=== PATIENT | male | born 1935 | race Caucasian/White ===

== ENCOUNTER 2019-03-31 03:56 | Inpatient (IN) | payer MEDICARE ==
[2019-03-31] VITALS (19 sets, daily range): BP systolic 93–131; BP diastolic 51–80
[~2019-03-31] VITALS: Ht 177.8 cm; Wt 59.8 kg
--- NOTE | 2019-03-31 04:15 | PHYS DOC ---
Adult General Chief Complaint Chief Complaint: urinary retention HPI HPI 84-year-old male presents for urinary retention. The patient has a Hanson catheter which was placed because he has prostate cancer. Since about 9 PM last night, the patient has not had any output. He is becoming uncomfortable. He has had this happen before. This feels the same. He was due to have the catheter changed a few weeks ago, but it did not changed yet. He was seen by home health nurse yesterday, but she decided not to change it that day. He denies fever or chills. He has no other complaints at this time. (YG HERNANDEZ DO) Review of Systems Review of Systems Constitutional: Denies fever or chills [] Eyes: Denies change in visual acuity, redness, or eye pain [] HENT: Denies nasal congestion or sore throat [] Respiratory: Denies cough or shortness of breath [] Cardiovascular: No additional information not addressed in HPI [] GI: Mild lower abdominal pain. denies nausea, vomiting, bloody stools or diarrhea [] : Obstructed Hanson catheter[] Musculoskeletal: Denies back pain or joint pain [] Integument: Denies rash or skin lesions [] Neurologic: Denies headache, focal weakness or sensory changes [] Endocrine: Denies polyuria or polydipsia [] All other systems were reviewed and found to be within normal limits, except as documented in this note. (YG HERNANDEZ DO) Physical Exam Physical Exam Constitutional: Well developed, well nourished, no acute distress, non-toxic appearance. [] HENT: Normocephalic, atraumatic, bilateral external ears normal, oropharynx moist, no oral exudates, nose normal. [] Eyes: PERRLA, EOMI, conjunctiva normal, no discharge. [] Neck: Normal range of motion, no tenderness, supple, no stridor. [] Cardiovascular:Heart rate regular rhythm, no murmur [] Lungs & Thorax: Bilateral breath sounds clear to auscultation [] Abdomen: Bowel sounds normal, soft, no tenderness, no masses, no pulsatile masses. [] Skin: Warm, dry, no erythema, no rash. [] Back: No tenderness, no CVA tenderness. [] Extremities: No tenderness, no cyanosis, no clubbing, ROM intact, no edema. [] Neurologic: Alert and oriented X 3, normal motor function, normal sensory function, no focal deficits noted. [] Psychologic: Affect normal, judgement normal, mood normal. : normal external genitalia, hanson catheter in place. [] (YG HERNANDEZ DO) EKG EKG [] (YG HERNANDEZ DO) Radiology/Procedures Radiology/Procedures [] (YG HERNANDEZ DO) Course & Med Decision Making Course & Med Decision Making Pertinent Labs and Imaging studies reviewed. (See chart for details) While the patient was in the emergency room, his heart was found to be 144. It does appear to be sinus. We have requested records from the [place] include a medical problem list and medication list. His Hanson catheter was changed and the new one was working well. The patient's workup is pending. I'm signing him out to Dr. Chaidez at 0600. The patient does appear to have UTI. I have ordered 1 g of Rocephin IV. [] (YG HERNANDEZ DO) Course & Med Decision Making Critical care time was 35 minutes exclusive of procedures. For management of tachyarrhythmia requiring IV agents. In summary this is an 84-year-old male with a history of prostate cancer came in initially for Hanson change found that that be in atrial flutter did a adenosine diagnostic proving the flutter waves gave dose of Cardizem heart rate improved its slowly trending back up at this time into the 120s will start low-dose Cardizem drip most likely. Patient did have some hematuria that apparently was clearing with manual irrigation in the emergency room. Received antibiotics for possible UTI BNP was elevated that may be some mild pulmonary edema he satting low 90s on 2 L at this time admit to chanelle D/W HIM AT 730 (JOSE LUIS CHAIDEZ MD) Dragon Disclaimer Dragon Disclaimer This electronic medical record was generated, in whole or in part, using a voice recognition dictation system. (YG HERNANDEZ DO) Departure Departure: Impression: Primary Impression: Urinary catheter complication Additional Impression: Atrial flutter Disposition: 09 ADMITTED INPATIENT Admitting Physician: Jay Huntley (JOSE LUIS CHAIDEZ MD) Condition: STABLE Referrals: PCP,NO (PCP) Patient Instructions: Hanson Catheter Care, Adult Problem Qualifiers Primary Impression: Urinary catheter complication Encounter type: initial encounter Qualified Codes: T83.9XXA - Unspecified complication of genitourinary prosthetic device, implant and graft, initial encounter YG HERNANDEZ DO Mar 31, 2019 04:15 JOSE LUIS CHAIDEZ MD Mar 31, 2019 07:00
[2019-03-31] MEDS ORDERED: IV NORMAL SALINE 1,000ML 1,000 ML IV ONE (05:00)
[2019-03-31 05:43] LABS: BILIRUBIN,URINE NEG (NEG); CLARITY,URINE TURBID; COLOR,URINE BROWN; GLUCOSE,URINE NEG (NEG)
[2019-03-31 05:44] LABS: BACTERIA,URINE MANY /HPF (0-FEW); NITRITE,URINE POS (NEG); RBC,URINE TNTC /HPF (0-2); UROBILINOGEN,URINE 0.2 mg/dL (0.2 mg/dL); WBC,URINE >40 /HPF (0-4)
[2019-03-31 05:54] LABS: BASO % 1 % (0-3); EOS # 0.3 x10^3/uL (0.0-0.7); EOS % 3 % (0-3); HEMATOCRIT 38.7 % (39.0-53.0); HEMOGLOBIN 13.1 g/dL (13.0-17.5); LYMPH # 1.2 x10^3/uL (1.0-4.8); LYMPH % 15 % (24-48); MEAN CORPUSCULAR HEMOGLOBIN 31 pg (25-35); MEAN CORPUSCULAR HGB CONC 34 g/dL (31-37); MEAN CORPUSCULAR VOLUME 91 fL (79-100); MONO # 0.7 x10^3/uL (0.0-1.1); MONO % 9 % (0-9); NEUT # 5.9 x10^3uL (1.8-7.7); NEUT % 73 % (31-73); PLATELET COUNT 210 x10^3/uL (140-400); RED BLOOD COUNT 4.26 x10^6/uL (4.30-5.70); RED CELL DISTRIBUTION WIDTH 13.9 % (11.5-14.5); WHITE BLOOD COUNT 8.2 x10^3/uL (4.0-11.0)
--- NOTE | 2019-03-31 05:54 | EKG ---
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
[2019-03-31 06:04] LABS: CALCIUM 9.3 mg/dL (8.5-10.1); CREATININE 1.2 mg/dL (0.7-1.3); GFR 57.7
[2019-03-31] MEDS ORDERED: lidocaine 5% patch (06:06)
[2019-03-31] MEDS ORDERED: cholecalciferol (06:06)
[2019-03-31] MEDS ORDERED: ENSURE PLUS (06:06)
[2019-03-31] MEDS ORDERED: TAMS0.4C97 PO (06:06)
[2019-03-31] MEDS ORDERED: SERT100T PO (06:06)
[2019-03-31] MEDS ORDERED: MIRT15TA3 PO (06:06)
[2019-03-31] MEDS ORDERED: ADENOSINE 6 MG/2 ML VIAL IV ONE ×4 (06:08→06:30)
[2019-03-31] MEDS ORDERED: cefTRIAXone SODIUM 1 GM VIAL ONE (06:09)
[2019-03-31 06:12] LABS: ALBUMIN 3.8 g/dL (3.4-5.0); ALBUMIN/GLOBULIN RATIO 1.5 (1.0-1.7); TOTAL PROTEIN 6.4 g/dL (6.4-8.2)
[2019-03-31] MEDS ORDERED: dilTIAZem 25 MG/5 ML VIAL IVP ONE ×2 (06:17→06:30)
[2019-03-31] MEDS ORDERED: DOXYCYCLINE HYCLATE 100 MG TABLET PO ONE (06:30)
[2019-03-31] MEDS ORDERED: dilTIAZem VIAL 125 MG in IV NORMAL SALINE 100ML 100 ML IV ONE (06:30)
--- NOTE | 2019-03-31 06:43 | EKG ---
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
[2019-03-31] MEDS ORDERED: IV NORMAL SALINE 100ML 100 ML ONE (06:54)
[2019-03-31] MEDS ORDERED: ASPIRIN 81 MG TAB.CHEW PO ONE (07:30)
--- NOTE | 2019-03-31 07:57 | RAD ---
CHEST AP ONLY INDICATION: Tachycardia. COMPARISON STUDY: None. FINDINGS: Lungs: Normal lung volume. Bilateral perihilar and basilar heterogeneous opacities. Indistinct pulmonary vasculature. Pleura: No pleural effusion or pneumothorax. Heart and Mediastinum: Cardiomegaly. Tortuous thoracic aorta. CABG. IMPRESSION: Bilateral perihilar and basilar opacities, likely pulmonary edema. Electronically signed by: Augustine Blanchard MD (03/31/2019 7:54 AM) [facility]
[2019-03-31] MEDS ORDERED: ONDANSETRON PF 4 MG/2 ML VIAL. ONE (08:13)
[2019-03-31] MEDS ORDERED: DIGOXIN IV 500 MCG/2 ML AMPUL. IV ONE ×3 (08:30→10:00)
[2019-03-31] MEDS ORDERED: FUROSEMIDE 20 MG/2 ML VIAL IVP ONE (09:00)
[2019-03-31] MEDS: ALBUTEROL SULFATE 2.5 MG/3 ML NEBU. NEB PRN ×2 (10:53→18:31)
--- NOTE | 2019-03-31 14:30 | PDOC2 ---
CARDIAC CONSULT DATE OF CONSULT Date Of Consult DATE: 03/31/19 TIME: 14:30 CURRENT MEDICATIONS Current Medications Current Medications Sodium Chloride 1,000 ml @ 1,000 mls/hr 1X ONCE IV Last administered on 03/31/19at 05:30; Start 03/31/19 at 05:00; Stop 03/31/19 at 06:00; Status DC Ceftriaxone Sodium 1 gm/ Sodium Chloride 50 ml @ 100 mls/hr 1X ONCE IV Last administered on 03/31/19at 06:30; Start 03/31/19 at 06:30; Stop 03/31/19 at 06:59; Status DC Adenosine (Adenocard) 6 mg STK-MED ONCE IV ; Start 03/31/19 at 06:08; Stop 03/31 at 06:08; Status DC Ceftriaxone Sodium (Rocephin) 1 gm STK-MED ONCE .ROUTE ; Start 03/31/19 at 06:09; Stop 03/31/19 at 06:09; Status DC Adenosine (Adenocard) 6 mg STK-MED ONCE IV ; Start 03/31/19 at 06:14; Stop 03/31/19 at 06:15; Status DC Diltiazem HCl (Cardizem Iv Push) 25 mg STK-MED ONCE IVP ; Start 03/31/19 at 06:17; Stop 03/31/19 at 06:18; Status DC Doxycycline Hyclate (Vibra-Tab) 100 mg 1X ONCE PO Last administered on 03/31/19at 07:15; Start 03/31/19 at 06:30; Stop 03/31/19 at 06:31; Status DC Diltiazem HCl (Cardizem Iv Push) 20 mg 1X ONCE IVP Last administered on 03/31/19at 06:40; Start 03/31/19 at 06:30; Stop 03/31/19 at 06:31; Status DC Diltiazem HCl 125 mg/Sodium Chloride 125 ml @ 5 mls/hr 1X ONCE IV Last administered on 03/31/19at 07:10; Start 03/31/19 at 06:30; Stop 04/01/19 at 07:29 Adenosine (Adenocard) 6 mg 1X ONCE IV Last administered on 03/31/19at 06:30; Start 03/31/19 at 06:30; Stop 03/31/19 at 06:31; Status DC Adenosine (Adenocard) 12 mg 1X ONCE IV Last administered on 03/31/19at 06:32; Start 03/31/19 at 06:30; Stop 03/31/19 at 06:31; Status DC Sodium Chloride 100 ml @ As Directed STK-MED ONCE .ROUTE ; Start 03/31/19 at 06:54; Stop 03/31/19 at 06:54; Status DC Diltiazem HCl (Cardizem) 125 mg STK-MED ONCE IV ; Start 03/31/19 at 06:54; Stop 03/31/19 at 06:54; Status DC Aspirin (Children'S Aspirin) 324 mg 1X ONCE PO Last administered on 03/31/19at 07:30; Start 03/31/19 at 07:30; Stop 03/31/19 at 07:31; Status DC Ondansetron HCl (Zofran) 4 mg STK-MED ONCE .ROUTE ; Start 03/31/19 at 08:13; Stop 03/31/19 at 08:13; Status DC Digoxin (Lanoxin) 500 mcg 1X ONCE IV ; Start 03/31/19 at 08:30; Stop 03/31/19 at 08:31; Status DC Furosemide (Lasix) 20 mg 1X ONCE IVP Last administered on 03/31/19at 09:09; Start 03/31/19 at 09:00; Stop 03/31/19 at 09:02; Status DC Digoxin (Lanoxin) 250 mcg 1X ONCE IV Last administered on 03/31/19at 09:07; Start 03/31/19 at 09:00; Stop 03/31/19 at 09:02; Status DC Digoxin (Lanoxin) 250 mcg 1X ONCE IV ; Start 03/31/19 at 10:00; Stop 03/31/19 at 10:01; Status DC Albuterol Sulfate (Ventolin) 2.5 mg PRN QID PRN NEB SHORTNESS OF BREATH Last administered on 03/31/19at 10:53; Start 03/31/19 at 09:00 Active Scripts Active Reported [cholecalciferol] Flomax (Tamsulosin Hcl) 0.4 Mg Cap.er.24h 0.4 Mg PO DAILY Zoloft (Sertraline Hcl) 100 Mg Tablet 100 Mg PO DAILY [ensure plus] Mirtazapine 15 Mg Tablet 15 Mg PO QHS [lidocaine 5% patch] ALLERGIES Allergies: Coded Allergies: No Known Drug Allergies (Unverified , 03/31/19) VITALS Vital Signs Vital Signs Date Time Temp Pulse Resp B/P (MAP) Pulse Ox O2 Delivery O2 Flow Rate FiO2 03/31/19 14:00 97.9 95 16 108/58 (75) 93 Room Air 03/31/19 12:30 4.0 LABS LABS Laboratory Tests Test 03/31/19 04:30 03/31/19 05:20 03/31/19 06:25 Urine Collection Type U cath Urine Color Brown Urine Clarity Turbid Urine pH 5.5 Urine Specific [place] >=1.030 Urine Protein >100 mg/dl (NEG-TRACE) Urine Glucose (UA) Neg mg/dL (NEG) Urine Ketones (Stick) Neg mg/dL (NEG) Urine Blood Large (NEG) Urine Nitrite Pos (NEG) Urine Bilirubin Neg (NEG) Urine Urobilinogen Dipstick 0.2 mg/dL (0.2 mg/dL) Urine Leukocyte Esterase Trace (NEG) Urine RBC Tntc /HPF (0-2) Urine WBC >40 /HPF (0-4) Urine Squamous Epithelial Cells None /LPF Urine Renal Epithelial Cells Occ /LPF Urine Bacteria Many /HPF (0-FEW) White Blood Count 8.2 x10^3/uL (4.0-11.0) Red Blood Count 4.26 x10^6/uL (4.30-5.70) Hemoglobin 13.1 g/dL (13.0-17.5) Hematocrit 38.7 % (39.0-53.0) Mean Corpuscular Volume 91 fL (79-100) Mean Corpuscular Hemoglobin 31 pg (25-35) Mean Corpuscular Hemoglobin Concent 34 g/dL (31-37) Red Cell Distribution Width 13.9 % (11.5-14.5) Platelet Count 210 x10^3/uL (140-400) Neutrophils (%) (Auto) 73 % (31-73) Lymphocytes (%) (Auto) 15 % (24-48) Monocytes (%) (Auto) 9 % (0-9) Eosinophils (%) (Auto) 3 % (0-3) Basophils (%) (Auto) 1 % (0-3) Neutrophils # (Auto) 5.9 x10^3uL (1.8-7.7) Lymphocytes # (Auto) 1.2 x10^3/uL (1.0-4.8) Monocytes # (Auto) 0.7 x10^3/uL (0.0-1.1) Eosinophils # (Auto) 0.3 x10^3/uL (0.0-0.7) Basophils # (Auto) 0.0 x10^3/uL (0.0-0.2) Prothrombin Time 10.9 SEC (9.4-11.4) Prothromb Time International Ratio 1.1 (0.9-1.1) Sodium Level 144 mmol/L (136-145) Potassium Level 4.0 mmol/L (3.5-5.1) Chloride Level 107 mmol/L (98-107) Carbon Dioxide Level 26 mmol/L (21-32) Anion Gap 11 (6-14) Blood Urea Nitrogen 24 mg/dL (8-26) Creatinine 1.2 mg/dL (0.7-1.3) Estimated GFR (Cockcroft-Gault) 57.7 BUN/Creatinine Ratio 20 (6-20) Glucose Level 93 mg/dL (70-99) Calcium Level 9.3 mg/dL (8.5-10.1) Total Bilirubin 1.0 mg/dL (0.2-1.0) Aspartate Amino Transf (AST/SGOT) 37 U/L (15-37) Alanine Aminotransferase (ALT/SGPT) 63 U/L (16-63) Alkaline Phosphatase 84 U/L (46-116) Troponin I Quantitative < 0.017 ng/mL (0-0.055) UD-Rzb-V-Type Natriuretic Peptide 2880 pg/mL (0-449) Total Protein 6.4 g/dL (6.4-8.2) Albumin 3.8 g/dL (3.4-5.0) Albumin/Globulin Ratio 1.5 (1.0-1.7) Lactic Acid Level 1.4 mmol/L (0.4-2.0) BRANDON HASSAN MD Mar 31, 2019 14:30
[2019-03-31] MEDS ORDERED: dilTIAZem VIAL 125 MG in IV NORMAL SALINE 100ML 100 ML IV PRN (17:00)
--- NOTE | 2019-03-31 17:57 | HP ---
ADMIT DATE: 03/31/2019 HISTORY OF PRESENT ILLNESS: The patient is an 84-year-old male patient who came to the Emergency Room complaining of urinary retention. The patient has a Bey catheter, which was placed because he has prostate cancer since about 9:00 p.m. last night. The patient has not had any output. He is becoming uncomfortable. He has had this having before he feels the same. He was due to have the catheter changed a few weeks ago, but it was not changed yet. He was seen by home health nurse yesterday, but she decided not to change it that day. He denied any chills, rigors or fever. He has no other complaint at the time of arrival and on arrival to the Emergency Room, he apparently was found to be in atrial fibrillation with rapid ventricular response. His Bey catheter was changed and new one was working well. The patient's workup showed that he was in atrial flutter and his lab work showed that his CBC and chemistry was fine. His prothrombin time and INR was fine. However, his urinalysis showed the urine was turbid with more than 100 mg/dL of protein, large amount of blood, positive for nitrite, more than 40 wbc's, and many bacteria and the patient was admitted with urinary retention, urinary tract infection and atrial flutter/atrial fibrillation. His chest x-ray showed that he is in pulmonary edema. He received treatment in the Emergency Room in the form of Cardizem drip and was given adenosine 6 and 12 mg without improvement and therefore with a loading dose of diltiazem and was started on diltiazem drip and was admitted for further evaluation, did receive about 500 mcg of digoxin IV and furosemide 20 mg once and was admitted to the ICU to continue on Cardizem drip. PAST MEDICAL HISTORY: Significant for hyperlipidemia, benign prostatic hypertrophy, coronary artery disease status post coronary artery bypass graft surgery. He has prostate cancer, mild cognitive impairment, erectile dysfunction, colonic polyps. PAST SURGICAL HISTORY: Significant for coronary artery bypass graft surgery. He has also abdominal aortic aneurysm repair. According to him, he has not received any treatment for his prostate cancer. ALLERGIES: He has no known drug allergies. MEDICATIONS: He is currently on following medications: He is on Flomax 0.4 mg daily, mirtazapine 15 mg at bedtime, sertraline 100 mg once a day. He is also on Lidoderm patch 1 patch topically on and off for 12 hours. He is on Ensure Plus 1 can by mouth every evening. He is on sertraline 100 mg once a day, tamsulosin 0.4 mg once a day, cholecalciferol/vitamin D3 1000 units daily. He is on multivitamin 1 tablet once a day. FAMILY HISTORY: Noncontributory. SOCIAL HISTORY: He is , lives alone. He has 2 sons and 1 daughter. He quit smoking about 18 years ago. He does not drink alcohol or use recreational drugs. He is fairly independent. Recently, the [place] has assigned home health nurse to take care of him. PHYSICAL EXAMINATION: GENERAL: On arrival to the Emergency Room, the patient looked well and was clearly in no apparent respiratory distress, slightly cachectic. There is no jaundice, cyanosis or thyromegaly. No jugular venous distention. No limb edema. VITAL SIGNS: His heart rate on arrival was 144, blood pressure was 136/90, temperature was 98, respiratory rate 24 and oxygen saturation was 91% on room air. HEAD, EYES, EARS, NOSE AND THROAT: Showed normocephalic, atraumatic. NECK: Supple. HEART: Showed normal first and second heart sounds. No gallop or murmur. CHEST: Showed central trachea, equal bilateral chest expansion and air entry, vesicular breath sounds with bilateral basal crepitation. I could not appreciate any rhonchi. ABDOMEN: Scaphoid, soft, nontender. NEUROLOGIC: He is awake, alert, responding appropriately. All cranial nerves intact. EXTREMITIES: He moves extremities without difficulty. He has an indwelling Bey catheter. LABORATORY DATA: His lab work on arrival showed a white cell count of 8200, hemoglobin 13, hematocrit 39, MCV 91, and platelet count 210,000 with normal manual differential. Serum sodium was 144, potassium 4, chloride 107, bicarbonate 26, anion gap of 11, BUN 24, creatinine 1.2, estimated GFR was 57 mL per minute. His glucose was 93. Lactic acid was 1.4, calcium was 9.3. Total bilirubin, AST, ALT, alkaline phosphatase were normal. Total protein 6.4, albumin was 3.8. Beta natriuretic peptide was 2180. His prothrombin time was 19.9, INR 1.1. Urinalysis showed the urine was brown, turbid with a pH of 5.5, specific gravity of 1.030. There was a large amount of protein, negative for glucose, negative for ketones, large amount of blood, positive for nitrite. There was trace of leukocyte esterase, too numerous to count rbc's, more than 40 wbc's, and many bacteria. His chest x-ray showed that there are normal lung volumes, bilateral perihilar and basilar heterogenous opacities, indistinct pulmonary vasculature. There is no pleural effusion or pneumothorax. Heart showed cardiomegaly and tortuous thoracic aorta, evidence of CABG and the impression that the patient has bilateral perihilar and basilar opacities, likely pulmonary edema. ASSESSMENT AND PLAN: The patient was treated initially with adenosine 6 and then 12 mg, given a bolus of diltiazem and then continued on Cardizem drip, received also digoxin 500 mcg once IV and received a total of 1000 mcg of digoxin and was continued on his diltiazem drip as well as his other medications. We have consulted the Cardiology team. We will continue with Cardizem drip for now. I am not sure he is a candidate for anticoagulation. We would leave that decision to Cardiology. ALLISON STODDARD MD DR: SUKHDEV/delores JOB#: [id number] / [id number]
[2019-03-31] MEDS: MIRTAZAPINE 15 MG TABLET PO SCH (20:31)
--- NOTE | 2019-03-31 20:56 | PDOC ---
Exam Note: Kin Note: Please also refer to the separate dictated note~for this date of service dictated separately.~Patient seen individually. Discussed the patient with Nursing staff reviewed the chart.~Reviewed interim history and current functioning. Reviewed vital signs,~Labs/ Radiology~and current medications noted below. Continue current treatment with the changes noted in the dictated addendum note Assessment: Vital Signs/I&O: Vital Signs Date Time Temp Pulse Resp B/P (MAP) Pulse Ox O2 Delivery O2 Flow Rate FiO2 03/31/19 20:30 98 20 98/60 (73) 94 Nasal Cannula 4.5 03/31/19 19:30 97.5 I & O 03/30/19 03/30/19 03/31/19 15:00 23:00 07:00 Intake Total 1000 ml Balance 1000 ml Labs: Laboratory Tests Test 03/31/19 04:30 03/31/19 05:20 03/31/19 06:25 Urine Collection Type U cath Urine Color Brown Urine Clarity Turbid Urine pH 5.5 Urine Specific [place] >=1.030 Urine Protein >100 mg/dl (NEG-TRACE) Urine Glucose (UA) Neg mg/dL (NEG) Urine Ketones (Stick) Neg mg/dL (NEG) Urine Blood Large (NEG) Urine Nitrite Pos (NEG) Urine Bilirubin Neg (NEG) Urine Urobilinogen Dipstick 0.2 mg/dL (0.2 mg/dL) Urine Leukocyte Esterase Trace (NEG) Urine RBC Tntc /HPF (0-2) Urine WBC >40 /HPF (0-4) Urine Squamous Epithelial Cells None /LPF Urine Renal Epithelial Cells Occ /LPF Urine Bacteria Many /HPF (0-FEW) White Blood Count 8.2 x10^3/uL (4.0-11.0) Red Blood Count 4.26 x10^6/uL (4.30-5.70) L Hemoglobin 13.1 g/dL (13.0-17.5) Hematocrit 38.7 % (39.0-53.0) L Mean Corpuscular Volume 91 fL (79-100) Mean Corpuscular Hemoglobin 31 pg (25-35) Mean Corpuscular Hemoglobin Concent 34 g/dL (31-37) Red Cell Distribution Width 13.9 % (11.5-14.5) Platelet Count 210 x10^3/uL (140-400) Neutrophils (%) (Auto) 73 % (31-73) Lymphocytes (%) (Auto) 15 % (24-48) L Monocytes (%) (Auto) 9 % (0-9) Eosinophils (%) (Auto) 3 % (0-3) Basophils (%) (Auto) 1 % (0-3) Neutrophils # (Auto) 5.9 x10^3uL (1.8-7.7) Lymphocytes # (Auto) 1.2 x10^3/uL (1.0-4.8) Monocytes # (Auto) 0.7 x10^3/uL (0.0-1.1) Eosinophils # (Auto) 0.3 x10^3/uL (0.0-0.7) Basophils # (Auto) 0.0 x10^3/uL (0.0-0.2) Prothrombin Time 10.9 SEC (9.4-11.4) Prothrombin Time INR 1.1 (0.9-1.1) Sodium Level 144 mmol/L (136-145) Potassium Level 4.0 mmol/L (3.5-5.1) Chloride Level 107 mmol/L (98-107) Carbon Dioxide Level 26 mmol/L (21-32) Anion Gap 11 (6-14) Blood Urea Nitrogen 24 mg/dL (8-26) Creatinine 1.2 mg/dL (0.7-1.3) Estimated GFR (Cockcroft-Gault) 57.7 BUN/Creatinine Ratio 20 (6-20) Glucose Level 93 mg/dL (70-99) Calcium Level 9.3 mg/dL (8.5-10.1) Total Bilirubin 1.0 mg/dL (0.2-1.0) Aspartate Amino Transferase (AST) 37 U/L (15-37) Alanine Aminotransferase (ALT) 63 U/L (16-63) Alkaline Phosphatase 84 U/L (46-116) Troponin I Quantitative < 0.017 ng/mL (0-0.055) MI-Acn-C-Type Natriuretic Peptide 2880 pg/mL (0-449) H Total Protein 6.4 g/dL (6.4-8.2) Albumin 3.8 g/dL (3.4-5.0) Albumin/Globulin Ratio 1.5 (1.0-1.7) Lactic Acid Level 1.4 mmol/L (0.4-2.0) Current Medications: Meds: Current Medications Medications (Trade) Dose Ordered Sig/Andrew Route PRN Reason Start Time Stop Time Status Last Admin Dose Admin Sodium Chloride 1,000 ml @ 1,000 mls/hr 1X ONCE IV 03/31/19 05:00 03/31/19 06:00 DC 03/31/19 05:30 Ceftriaxone Sodium 1 gm/ Sodium Chloride 50 ml @ 100 mls/hr 1X ONCE IV 03/31/19 06:30 03/31/19 06:59 DC 03/31/19 06:30 Doxycycline Hyclate (Vibra-Tab) 100 mg 1X ONCE PO 03/31/19 06:30 03/31/19 06:31 DC 03/31/19 07:15 Diltiazem HCl (Cardizem Iv Push) 20 mg 1X ONCE IVP 03/31/19 06:30 03/31/19 06:31 DC 03/31/19 06:40 Diltiazem HCl 125 mg/Sodium Chloride 125 ml @ 5 mls/hr 1X ONCE IV 03/31/19 06:30 03/31/19 17:12 DC 03/31/19 07:10 Adenosine (Adenocard) 6 mg 1X ONCE IV 03/31/19 06:30 03/31/19 06:31 DC 03/31/19 06:30 Adenosine (Adenocard) 12 mg 1X ONCE IV 03/31/19 06:30 03/31/19 06:31 DC 03/31/19 06:32 Aspirin (Children'S Aspirin) 324 mg 1X ONCE PO 03/31/19 07:30 03/31/19 07:31 DC 03/31/19 07:30 Furosemide (Lasix) 20 mg 1X ONCE IVP 03/31/19 09:00 03/31/19 09:02 DC 03/31/19 09:09 Digoxin (Lanoxin) 250 mcg 1X ONCE IV 03/31/19 09:00 03/31/19 09:02 DC 03/31/19 09:07 Albuterol Sulfate (Ventolin) 2.5 mg PRN QID PRN NEB SHORTNESS OF BREATH 03/31/19 09:00 03/31/19 18:31 Mirtazapine (Remeron) 15 mg QHS PO 03/31/19 21:00 1/18/20 20:31 Diltiazem HCl 125 mg/Sodium Chloride 125 ml @ 5 mls/hr CONT PRN IV TACHYCARDIA 03/31/19 17:00 03/31/19 18:14 I have reviewed the current psychotropics carefully including drug interactions. Risk benefit ratio favors no change other than as noted in my dictated progress note. Diagnosis: Problems: (1) Atrial flutter (2) Urinary catheter complication CATHERINE HURST MD Mar 31, 2019 20:56
[2019-04-01] VITALS (22 sets, daily range): BP systolic 58–121; BP diastolic 50–82
[2019-04-01 06:47] LABS: ALBUMIN 2.8 g/dL (3.4-5.0); CALCIUM 7.8 mg/dL (8.5-10.1); CREATININE 1.1 mg/dL (0.7-1.3); GFR 63.8; POTASSIUM 3.6 mmol/L (3.5-5.1); TOTAL BILIRUBIN 0.9 mg/dL (0.2-1.0); TOTAL PROTEIN 5.6 g/dL (6.4-8.2)
[2019-04-01 07:09] LABS: HEMATOCRIT 34.1 % (39.0-53.0); HEMOGLOBIN 11.9 g/dL (13.0-17.5); RED BLOOD COUNT 3.81 x10^6/uL (4.30-5.70); RED CELL DISTRIBUTION WIDTH 13.8 % (11.5-14.5); WHITE BLOOD COUNT 8.1 x10^3/uL (4.0-11.0)
--- NOTE | 2019-04-01 07:52 | RAD ---
CT scan of the head without contrast 04/01/2019 Clinical History: Cognitive decline. Technique: Unenhanced, contiguous, 5 mm axial sections were obtained through the head. One or more of the following individualized dose reduction techniques were utilized for this study: 1. Automated exposure control. 2. Adjustment of the mA and/or kV according to patient size. 3. Use of iterative reconstruction technique. Findings: No previous studies are available for comparison. There is generalized parenchymal atrophy. Areas of decreased attenuation are seen within the periventricular and subcortical white matter of both cerebral hemispheres consistent with areas of small vessel ischemic disease. No acute parenchymal abnormality is seen. No extra-axial fluid collection is noted. No skull fracture is seen. Impression: No acute intracranial abnormality is seen. Electronically signed by: Barrera Ashton MD (04/01/2019 7:48 AM) [id number]
[2019-04-01 08:40] LABS: BGAS PH 7.46 (7.35-7.46)
[2019-04-01] MEDS: TAMSULOSIN 0.4 MG CAP.ER.24H. PO SCH (09:31)
[2019-04-01] MEDS: LACTOBACILLUS RHAMNOSUS GG 1 CAPSULE. PO SCH ×2 (09:31→20:35)
[2019-04-01] MEDS: SERTRALINE 100 MG TABLET. PO SCH (09:31)
[2019-04-01] MEDS: METOPROLOL TART IMMED RELEASE 25 MG TABLET PO SCH ×2 (11:15→20:35)
[2019-04-01] MEDS: APIXABAN 5 MG TABLET. PO SCH ×2 (12:59→20:35)
--- NOTE | 2019-04-01 14:04 | PDOC2 ---
CARDIAC CONSULT DATE OF CONSULT Date Of Consult DATE: 03/31/19 REASON FOR CONSULT Reason for Consult Atrial fib/flutter REFERRING PHYSICIAN Referring Physician Dr. Huntley SOURCE Source: Chart review, Patient HPI History of Present Illness The patient is an 84-year-old male who was brought to the emergency room for difficulty voiding. He has a history of prostate cancer and a catheter was placed in the emergency room. Also while in the emergency room the patient was found to have a tachycardia which is found to be atrial fib flutter. He was admitted and treated with IV Cardizem for rate control. EKG showed no ischemic changes. Chest x-ray showed mild by bilateral pulmonary edema. Troponin has been normal at less than 0.017, BNP elevated at 2880. TSH is 0.777 and potassium is 3.6. The patient is now resting comfortably in bed. He presently is in a sinus rhythm a rate of 95 but continues to have episodes of atrial flutter flutter as well. He denies any chest pain. He does have a history of coronary artery disease as well as bypass surgery and abdominal aortic aneurysm repair. PAST MEDICAL HISTORY Cardiovascular: CAD, HTN, hyperipidemia, Other (nominal aortic aneurysm) Pulmonary: COPD Heme/Onc: Other (prostate cancer) PAST SURGICAL HISTORY Past Surgical History: CABG FAMILY HISTORY Family History: Hypertension SOCIAL HISTORY Smoke: Quit ALCOHOL: none CURRENT MEDICATIONS Current Medications Current Medications Sodium Chloride 1,000 ml @ 1,000 mls/hr 1X ONCE IV Last administered on 03/31/19at 05:30; Start 03/31/19 at 05:00; Stop 03/31/19 at 06:00; Status DC Ceftriaxone Sodium 1 gm/ Sodium Chloride 50 ml @ 100 mls/hr 1X ONCE IV Last administered on 03/31/19at 06:30; Start 03/31/19 at 06:30; Stop 03/31/19 at 06 :59; Status DC Adenosine (Adenocard) 6 mg STK-MED ONCE IV ; Start 03/31/19 at 06:08; Stop 03/31/19 at 06:08; Status DC Ceftriaxone Sodium (Rocephin) 1 gm STK-MED ONCE .ROUTE ; Start 03/31/19 at 06:09; Stop 03/31/19 at 06:09; Status DC Adenosine (Adenocard) 6 mg STK-MED ONCE IV ; Start 03/31/19 at 06:14; Stop 03/31/19 at 06:15; Status DC Diltiazem HCl (Cardizem Iv Push) 25 mg STK-MED ONCE IVP ; Start 03/31/19 at 06:17; Stop 03/31/19 at 06:18; Status DC Doxycycline Hyclate (Vibra-Tab) 100 mg 1X ONCE PO Last administered on 03/31/19at 07:15; Start 03/31/19 at 06:30; Stop 03/31/19 at 06:31; Status DC Diltiazem HCl (Cardizem Iv Push) 20 mg 1X ONCE IVP Last administered on 03/31/19at 06:40; Start 03/31/19 at 06:30; Stop 03/31/19 at 06:31; Status DC Diltiazem HCl 125 mg/Sodium Chloride 125 ml @ 5 mls/hr 1X ONCE IV Last administered on 03/31/19at 07:10; Start 03/31/19 at 06:30; Stop 03/31/19 at 17:12; Status DC Adenosine (Adenocard) 6 mg 1X ONCE IV Last administered on 03/31/19at 06:30; Start 03/31/19 at 06:30; Stop 03/31/19 at 06:31; Status DC Adenosine (Adenocard) 12 mg 1X ONCE IV Last administered on 03/31/19at 06:32; Start 03/31/19 at 06:30; Stop 03/31/19 at 06:31; Status DC Sodium Chloride 100 ml @ As Directed STK-MED ONCE .ROUTE ; Start 03/31/19 at 06:54; Stop 03/31/19 at 06:54; Status DC Diltiazem HCl (Cardizem) 125 mg STK-MED ONCE IV ; Start 03/31/19 at 06:54; Stop 03/31/19 at 06:54; Status DC Aspirin (Children'S Aspirin) 324 mg 1X ONCE PO Last administered on 03/31/19at 07:30; Start 03/31/19 at 07:30; Stop 03/31/19 at 07:31; Status DC Ondansetron HCl (Zofran) 4 mg STK-MED ONCE .ROUTE ; Start 03/31/19 at 08:13; Stop 03/31/19 at 08:13; Status DC Digoxin (Lanoxin) 500 mcg 1X ONCE IV ; Start 03/31/19 at 08:30; Stop 03/31/19 at 08:31; Status DC Furosemide (Lasix) 20 mg 1X ONCE IVP Last administered on 03/31/19at 09:09; Start 03/31/19 at 09:00; Stop 03/31/19 at 09:02; Status DC Digoxin (Lanoxin) 250 mcg 1X ONCE IV Last administered on 03/31/19at 09:07; Start 03/31/19 at 09:00; Stop 03/31/19 at 09:02; Status DC Digoxin (Lanoxin) 250 mcg 1X ONCE IV ; Start 03/31/19 at 10:00; Stop 03/31/19 at 10:01; Status DC Albuterol Sulfate (Ventolin) 2.5 mg PRN QID PRN NEB SHORTNESS OF BREATH Last administered on 03/31/19at 18:31; Start 03/31/19 at 09:00 Mirtazapine (Remeron) 15 mg QHS PO Last administered on 03/31/19at 20:31; Start 03/31/19 at 21:00 Sertraline HCl (Zoloft) 100 mg DAILY PO Last administered on 04/01/19at 09:31; Start 04/01/19 at 09:00 Tamsulosin HCl (Flomax) 0.4 mg DAILY PO Last administered on 04/01/19at 09:31; Start 04/01/19 at 09:00 Ceftriaxone Sodium 1 gm/ Sodium Chloride 50 ml @ 100 mls/hr Q24H IV Last administered on 04/01/19at 04:51; Start 04/01/19 at 06:00 Diltiazem HCl 125 mg/Sodium Chloride 125 ml @ 5 mls/hr CONT PRN IV TACHYCARDIA Last administered on 03/31/19at 18:14; Start 03/31/19 at 17:00 Lactobacillus Rhamnosus (Culturelle) 1 cap BID PO Last administered on 04/01/19at 09:31; Start 04/01/19 at 09:00 Metoprolol Tartrate (Lopressor) 25 mg BID PO Last administered on 04/01/19at 1 1:15; Start 04/01/19 at 11:00 Apixaban (Eliquis) 5 mg BID PO Last administered on 04/01/19at 12:59; Start 04/01/19 at 11:00 Active Scripts Active Reported [cholecalciferol] Flomax (Tamsulosin Hcl) 0.4 Mg Cap.er.24h 0.4 Mg PO DAILY Zoloft (Sertraline Hcl) 100 Mg Tablet 100 Mg PO DAILY [ensure plus] Mirtazapine 15 Mg Tablet 15 Mg PO QHS [lidocaine 5% patch] ALLERGIES Allergies: Coded Allergies: No Known Drug Allergies (Unverified , 03/31/19) ROS Respiratory: YES: SOB with excertion PHYSICAL EXAM General: mild distress HEENT: Atraumatic Lungs: Other (Mildly decreased breath sounds) Heart: Regular rate Abdomen: Normal bowel sounds VITALS Vital Signs Vital Signs Date Time Temp Pulse Resp B/P (MAP) Pulse Ox O2 Delivery O2 Flow Rate FiO2 04/01/19 13:49 93 29 94/69 (77) 89 04/01/19 07:37 98.2 Nasal Cannula 5.0 LABS LABS Laboratory Tests Test 03/31/19 04:30 03/31/19 05:20 03/31/19 06:25 04/01/19 06:20 Urine Collection Type U cath Urine Color Brown Urine Clarity Turbid Urine pH 5.5 Urine Specific Winder >=1.030 Urine Protein >100 mg/dl (NEG-TRACE) Urine Glucose (UA) Neg mg/dL (NEG) Urine Ketones (Stick) Neg mg/dL (NEG) Urine Blood Large (NEG) Urine Nitrite Pos (NEG) Urine Bilirubin Neg (NEG) Urine Urobilinogen Dipstick 0.2 mg/dL (0.2 mg/dL) Urine Leukocyte Esterase Trace (NEG) Urine RBC Tntc /HPF (0-2) Urine WBC >40 /HPF (0-4) Urine Squamous Epithelial Cells None /LPF Urine Renal Epithelial Cells Occ /LPF Urine Bacteria Many /HPF (0-FEW) White Blood Count 8.2 x10^3/uL (4.0-11.0) 8.1 x10^3/uL (4.0-11.0) Red Blood Count 4.26 x10^6/uL (4.30-5.70) 3.81 x10^6/uL (4.30-5.70) Hemoglobin 13.1 g/dL (13.0-17.5) 11.9 g/dL (13.0-17.5) Hematocrit 38.7 % (39.0-53.0) 34.1 % (39.0-53.0) Mean Corpuscular Volume 91 fL (79-100) 90 fL (79-100) Mean Corpuscular Hemoglobin 31 pg (25-35) 31 pg (25-35) Mean Corpuscular Hemoglobin Concent 34 g/dL (31-37) 35 g/dL (31-37) Red Cell Distribution Width 13.9 % (11.5-14.5) 13.8 % (11.5-14.5) Platelet Count 210 x10^3/uL (140-400) 171 x10^3/uL (140-400) Neutrophils (%) (Auto) 73 % (31-73) Lymphocytes (%) (Auto) 15 % (24-48) Monocytes (%) (Auto) 9 % (0-9) Eosinophils (%) (Auto) 3 % (0-3) Basophils (%) (Auto) 1 % (0-3) Neutrophils # (Auto) 5.9 x10^3uL (1.8-7.7) Lymphocytes # (Auto) 1.2 x10^3/uL (1.0-4.8) Monocytes # (Auto) 0.7 x10^3/uL (0.0-1.1) Eosinophils # (Auto) 0.3 x10^3/uL (0.0-0.7) Basophils # (Auto) 0.0 x10^3/uL (0.0-0.2) Prothrombin Time 10.9 SEC (9.4-11.4) Prothromb Time International Ratio 1.1 (0.9-1.1) Sodium Level 144 mmol/L (136-145) 142 mmol/L (136-145) Potassium Level 4.0 mmol/L (3.5-5.1) 3.6 mmol/L (3.5-5.1) Chloride Level 107 mmol/L (98-107) 109 mmol/L (98-107) Carbon Dioxide Level 26 mmol/L (21-32) 26 mmol/L (21-32) Anion Gap 11 (6-14) 7 (6-14) Blood Urea Nitrogen 24 mg/dL (8-26) 20 mg/dL (8-26) Creatinine 1.2 mg/dL (0.7-1.3) 1.1 mg/dL (0.7-1.3) Estimated GFR (Cockcroft-Gault) 57.7 63.8 BUN/Creatinine Ratio 20 (6-20) 18 (6-20) Glucose Level 93 mg/dL (70-99) 112 mg/dL (70-99) Calcium Level 9.3 mg/dL (8.5-10.1) 7.8 mg/dL (8.5-10.1) Total Bilirubin 1.0 mg/dL (0.2-1.0) 0.9 mg/dL (0.2-1.0) Aspartate Amino Transf (AST/SGOT) 37 U/L (15-37) 24 U/L (15-37) Alanine Aminotransferase (ALT/SGPT) 63 U/L (16-63) 44 U/L (16-63) Alkaline Phosphatase 84 U/L (46-116) 67 U/L (46-116) Troponin I Quantitative < 0.017 ng/mL (0-0.055) GR-Zic-T-Type Natriuretic Peptide 2880 pg/mL (0-449) Total Protein 6.4 g/dL (6.4-8.2) 5.6 g/dL (6.4-8.2) Albumin 3.8 g/dL (3.4-5.0) 2.8 g/dL (3.4-5.0) Albumin/Globulin Ratio 1.5 (1.0-1.7) 1.0 (1.0-1.7) Lactic Acid Level 1.4 mmol/L (0.4-2.0) Thyroid Stimulating Hormone (TSH) 0.777 uIU/mL (0.358-3.740) Test 04/01/19 08:25 Blood Gas pH 7.46 (7.35-7.46) Blood Gas PCO2 32 mmHg (35-46) Blood Gas PO2 64 mmHg (71-100) Blood Gas HCO3 23 mmol/L (21-28) Arterial Bld O2 Saturation (Calc) 94 % (92-99) FiO2 40 % IMAGES IMAGES Chest x-ray with mild pulmonary edema EKG EKG EKG shows a sinus rhythm with no acute ischemic changes. ASSESSMENT/PLAN Assessment/Plan 1. Prostate cancer. Treated the [place]. Catheter placed. Also being treated for a urinary tract infection. 2. Paroxysmal atrial fib flutter. Patient is now in a sinus rhythm but has been going back and forth out of rhythms. Patient denies a history of previous atrial arrhythmias. At this time will continue on IV Cardizem for rate control. Hopefully the patient will convert to sinus rhythm overnight and then will adjust oral medications in the morning. 3. History of coronary artery disease. No chest pain. No acute ischemic changes. 4. Mild heart failure. Mild pulmonary edema chest x-ray and BNP of 2880. We'll continue to monitor and attempt mild diuresis. 5. History of an abdominal aortic aneurysm repair. 6. Hyperlipidemia. We'll check lab. 7. Hypertension. We'll adjust medications as needed. Thank you for allowing us to participate in the care of your patient. BRANDON HASSAN MD Apr 01, 2019 14:04
--- NOTE | 2019-04-01 14:12 | PDOC ---
Progress Note. Subjective: Patient seen and examined He looks and feels better today Objective: Vital Signs/I&O: Vital Signs Date Time Temp Pulse Resp B/P (MAP) Pulse Ox O2 Delivery O2 Flow Rate FiO2 04/01/19 13:49 93 29 94/69 (77) 89 04/01/19 07:37 98.2 Nasal Cannula 5.0 l I & O 03/31/19 03/31/19 04/01/19 15:00 23:00 07:00 Intake Total 50 ml 800 ml 0 ml Output Total 1625 ml 150 ml 725 ml Balance -1575 ml 650 ml -725 ml Labs: Laboratory Tests Test 04/01/19 06:20 04/01/19 08:25 White Blood Count 8.1 x10^3/uL (4.0-11.0) Red Blood Count 3.81 x10^6/uL (4.30-5.70) L Hemoglobin 11.9 g/dL (13.0-17.5) L Hematocrit 34.1 % (39.0-53.0) L Mean Corpuscular Volume 90 fL (79-100) Mean Corpuscular Hemoglobin 31 pg (25-35) Mean Corpuscular Hemoglobin Concent 35 g/dL (31-37) Red Cell Distribution Width 13.8 % (11.5-14.5) Platelet Count 171 x10^3/uL (140-400) Sodium Level 142 mmol/L (136-145) Potassium Level 3.6 mmol/L (3.5-5.1) Chloride Level 109 mmol/L (98-107) H Carbon Dioxide Level 26 mmol/L (21-32) Anion Gap 7 (6-14) Blood Urea Nitrogen 20 mg/dL (8-26) Creatinine 1.1 mg/dL (0.7-1.3) Estimated GFR (Cockcroft-Gault) 63.8 BUN/Creatinine Ratio 18 (6-20) Glucose Level 112 mg/dL (70-99) H Calcium Level 7.8 mg/dL (8.5-10.1) L Magnesium Level 1.9 mg/dL (1.8-2.4) Total Bilirubin 0.9 mg/dL (0.2-1.0) Aspartate Amino Transferase (AST) 24 U/L (15-37) Alanine Aminotransferase (ALT) 44 U/L (16-63) Alkaline Phosphatase 67 U/L (46-116) Total Protein 5.6 g/dL (6.4-8.2) L Albumin 2.8 g/dL (3.4-5.0) L Albumin/Globulin Ratio 1.0 (1.0-1.7) Thyroid Stimulating Hormone (TSH) 0.777 uIU/mL (0.358-3.740) Blood pH 7.46 (7.35-7.46) Blood Gas PCO2 32 mmHg (35-46) L Blood Gas PO2 64 mmHg (71-100) L Blood Gas HCO3 23 mmol/L (21-28) Arterial Bld O2 Saturation (Calc) 94 % (92-99) FiO2 40 % Physical Exam: Chest: Mildly decreased breath sounds. CV: RRR Abdomen: soft Assessment: 1. Prostate cancer. Treated at the [place]. Catheter placed. Also being treated for a urinary tract infection. 2. Paroxysmal atrial fib flutter. Recurrent episodes of atrial fib/ flutter overnight. Will place on low-dose beta blockers. We'll attempt to taper IV Cardizem. Will start at least short term Eliquis for anticoagulation. 3. History of coronary artery disease and CABG . No chest pain. No acute ischemic changes. 4. Mild heart failure. Mild pulmonary edema chest x-ray and BNP of 2880. We'll attempt mild diuresis. ECHO in the morning for LV function. 5. History of an abdominal aortic aneurysm repair. 6. Hyperlipidemia. We'll check lab. 7. Hypertension. We'll adjust medications as needed. BRANDON HASSAN MD Apr 01, 2019 14:12
[2019-04-01] MEDS ORDERED: IOHEXOL 350 MG/ML 100 ML VIAL. IV ONE (14:30)
--- NOTE | 2019-04-01 17:28 | RAD ---
CTA chest with contrast and CT abdomen pelvis with contrast dated 04/01/2019. No comparison available. Clinical data indication: Hypoxia. TECHNIQUE: Contiguous axial imaging the chest performed following the intravenous administration of 100 cc Omnipaque 350. Study was performed as dedicated PE protocol with thin cut coronal MIPS 3-D reconstruction. In addition, axial imaging of the abdomen and pelvis acquired space. One or more of the following individualized dose reduction techniques were utilized for this examination: 1. Automated exposure control 2. Adjustment of the mA and/or kV according to patient size 3. Use of iterative reconstruction technique FINDINGS: Contrast bolus is adequate. No evidence of central, lobar or segmental pulmonary embolus. Subsegmental branches are not well evaluated based on technique. Heart size mildly enlarged. No pericardial effusion. Coronary artery calcifications. Ectasia of the ascending thoracic aorta measuring 4.1 cm transverse. The patient is status post median sternotomy and CABG procedure. No mediastinal, hilar or axillary lymphadenopathy. Thyroid gland unremarkable. Central airways are patent. There is patchy airspace disease at the dependent aspect of the bilateral lower lobes and bilateral upper lobes with intermixed groundglass opacity. Small moderate size bilateral pleural effusions, right greater than left. Superimposed moderate to severe emphysema. There is diffuse bronchial wall thickening. No pneumothorax. Images of the abdomen show a well-circumscribed low-density focus in the left lobe liver measuring about 10 mm in size, likely cyst. There is also probable small cyst at the inferior right lobe liver. No biliary ductal dilatation. The gallbladder is unremarkable. Spleen is normal in size. Pancreas, adrenal glands and kidneys are unremarkable. No hydronephrosis. Unopacified GI tract normal in caliber and contour. No focal bowel wall thickening. No inflammatory stranding in the mesentery. The appendix is partially visualized and normal in caliber. No ascites or lymphadenopathy. Evidence of prior aortic graft repair. No significant aneurysm. Images of pelvis show markedly enlarged prostate gland. The urinary bladder is collapsed with Bey catheter in place. No free pelvic fluid or pelvic adenopathy. There scattered diverticula within the distal colon. Bone windows show moderate superior endplate wedge compression deformity of L3, likely acute. Vertebral body heights are otherwise maintained. Multilevel spondylosis. IMPRESSION: 1. No evidence of central, lobar or segmental pulmonary embolus. 2. Patchy multifocal airspace disease, edema versus pneumonia. There are small to moderate size bilateral pleural effusions. 3. Moderate superior endplate wedge compression fracture at L3, likely acute. 4. Emphysema. 5. Prostatomegaly. 6. Diverticulosis. Electronically signed by: Magdy Suarez MD (04/01/2019 5:25 PM) [facility]
[2019-04-01] MEDS ORDERED: FUROSEMIDE 40 MG/4 ML VIAL IVP ONE (18:00)
[2019-04-01] MEDS ORDERED: DIGOXIN IV 500 MCG/2 ML AMPUL. IV ONE (18:00)
[2019-04-01] MEDS: MIRTAZAPINE 15 MG TABLET PO SCH (20:35)
--- NOTE | 2019-04-01 20:58 | PDOC ---
Exam Note: Kin Note: Please also refer to the separate dictated note~for this date of service dictated separately.~Patient seen individually. Discussed the patient with Nursing staff reviewed the chart.~Reviewed interim history and current functioning. Reviewed vital signs,~Labs/ Radiology~and current medications noted below. Continue current treatment with the changes noted in the dictated addendum note Assessment: Vital Signs/I&O: Vital Signs Date Time Temp Pulse Resp B/P (MAP) Pulse Ox O2 Delivery O2 Flow Rate FiO2 04/01/19 20:35 112 111/71 04/01/19 20:00 Venturi Mask 12.0 04/01/19 19:45 24 92 04/01/19 19:00 98.8 I & O 03/31/19 03/31/19 04/01/19 15:00 23:00 07:00 Intake Total 50 ml 800 ml 0 ml Output Total 1625 ml 150 ml 725 ml Balance -1575 ml 650 ml -725 ml Labs: Laboratory Tests Test 04/01/19 06:20 04/01/19 08:25 White Blood Count 8.1 x10^3/uL (4.0-11.0) Red Blood Count 3.81 x10^6/uL (4.30-5.70) L Hemoglobin 11.9 g/dL (13.0-17.5) L Hematocrit 34.1 % (39.0-53.0) L Mean Corpuscular Volume 90 fL (79-100) Mean Corpuscular Hemoglobin 31 pg (25-35) Mean Corpuscular Hemoglobin Concent 35 g/dL (31-37) Red Cell Distribution Width 13.8 % (11.5-14.5) Platelet Count 171 x10^3/uL (140-400) Sodium Level 142 mmol/L (136-145) Potassium Level 3.6 mmol/L (3.5-5.1) Chloride Level 109 mmol/L (98-107) H Carbon Dioxide Level 26 mmol/L (21-32) Anion Gap 7 (6-14) Blood Urea Nitrogen 20 mg/dL (8-26) Creatinine 1.1 mg/dL (0.7-1.3) Estimated GFR (Cockcroft-Gault) 63.8 BUN/Creatinine Ratio 18 (6-20) Glucose Level 112 mg/dL (70-99) H Calcium Level 7.8 mg/dL (8.5-10.1) L Magnesium Level 1.9 mg/dL (1.8-2.4) Total Bilirubin 0.9 mg/dL (0.2-1.0) Aspartate Amino Transferase (AST) 24 U/L (15-37) Alanine Aminotransferase (ALT) 44 U/L (16-63) Alkaline Phosphatase 67 U/L (46-116) Total Protein 5.6 g/dL (6.4-8.2) L Albumin 2.8 g/dL (3.4-5.0) L Albumin/Globulin Ratio 1.0 (1.0-1.7) Thyroid Stimulating Hormone (TSH) 0.777 uIU/mL (0.358-3.740) Blood pH 7.46 (7.35-7.46) Blood Gas PCO2 32 mmHg (35-46) L Blood Gas PO2 64 mmHg (71-100) L Blood Gas HCO3 23 mmol/L (21-28) Arterial Bld O2 Saturation (Calc) 94 % (92-99) FiO2 40 % Current Medications: Meds: Current Medications Medications (Trade) Dose Ordered Sig/Andrew Route PRN Reason Start Time Stop Time Status Last Admin Dose Admin Mirtazapine (Remeron) 15 mg QHS PO 03/31/19 21:00 04/01/19 20:35 Sertraline HCl (Zoloft) 100 mg DAILY PO 04/01/19 09:00 04/01/19 09:31 Tamsulosin HCl (Flomax) 0.4 mg DAILY PO 04/01/19 09:00 04/01/19 09:31 Ceftriaxone Sodium 1 gm/ Sodium Chloride 50 ml @ 100 mls/hr Q24H IV 04/01/19 06:00 04/01/19 04:51 Lactobacillus Rhamnosus (Culturelle) 1 cap BID PO 04/01/19 09:00 04/01/19 20:35 Metoprolol Tartrate (Lopressor) 25 mg BID PO 04/01/19 11:00 04/01/19 20:35 Apixaban (Eliquis) 5 mg BID PO 04/01/19 11:00 04/01/19 20:35 Iohexol (Omnipaque 350 Mg/ml) 100 ml 1X ONCE IV 04/01/19 14:30 04/01/19 14:31 DC 04/01/19 16:38 Digoxin (Lanoxin) 250 mcg 1X ONCE IV 04/01/19 18:00 04/01/19 18:01 DC 04/01/19 19:24 Furosemide (Lasix) 30 mg 1X ONCE IVP 04/01/19 18:00 04/01/19 18:01 DC 04/01/19 18:15 I have reviewed the current psychotropics carefully including drug interactions. Risk benefit ratio favors no change other than as noted in my dictated progress note. Diagnosis: Problems: (1) Atrial flutter (2) Urinary catheter complication (3) Anxiety disorder (4) Mild cognitive impairment CATHERINE HURST MD Apr 01, 2019 20:58
--- NOTE | 2019-04-01 23:12 | CONS ---
DATE OF CONSULTATION: 03/31/2019 PSYCHIATRIC CONSULTATION This late entry on 03/31/2019, covers elements not covered in my initial note. I met with the patient evening of 03/31/2019. Discussed with nursing staff, reviewed the chart. IDENTIFYING DATA: The patient is an 84-year-old male seen in ICU bed 4, [facility], for a psychiatric consult requested by Dr. Huntley on account of his worsening short-term memory deficits and the fact that he lives by himself at home, is still driving in the community even though he is getting increasingly forgetful. He has been admitted for stabilization of his UTI and atrial flutter and psychiatric consult requested for evaluation of his memory deficits. CHIEF COMPLAINT: "I forget a few things, but I am alright." HISTORY OF PRESENT ILLNESS: The patient presented to the ER with urinary retention. He has a Bey catheter placed because he has CA prostate. He has been living at home, getting more forgetful, but still able to find his way around town driving. He states when he goes further away, he may get confused a little bit. Sleep and appetite are fair. No psychotic symptoms, suicidal or homicidal ideation. No alcohol or drug abuse history. PAST PSYCHIATRIC HISTORY: As above. MEDICAL HISTORY: In addition to UTI, atrial flutter. The patient has a history of hyperlipidemia, BPH versus CA prostate, coronary artery disease status post bypass graft, erectile dysfunction and colon polyps. PAST SURGICAL HISTORY: Coronary artery bypass graft, abdominal aortic aneurysm repaired. DRUG ALLERGIES: Negative. CURRENT PSYCHOTROPIC: Remeron 15 mg at bedtime, Zoloft 100 mg a day. He is also on vitamin D supplements. FAMILY HISTORY: Noncontributory. SOCIAL HISTORY: The patient is , lives alone. He has 2 sons, 1 daughter. He stopped smoking 18 years ago. He is receiving [facility]. MENTAL STATUS EXAMINATION: The patient was seen individually at some length the evening of 03/31/2019. He is oriented to himself and situation. Speech is rapid and he is somewhat anxious, trying to cover up some of his memory deficits and getting more hyperverbal as he attempted this. He was aware that the year was 2019, aware of the name of the president, able to do one step on serial 7's. Attention span short. Mood is somewhat anxious, dysphoric. Affect is mood congruent. No clear psychotic symptoms, suicidal or homicidal ideation. IMPRESSION: Probable mild cognitive impairment versus major neurocognitive disorder, early vascular with depression and anxiety. Rest as above. PLAN: From a psychiatric standpoint, I would suggest a workup of his dementia including a CT head without contrast, serum folate, B12, TSH. Continue current psychotropics. The patient should not drive until he has a formal driving assessment completed. Given that he does get lost at times. He does live by himself and has been quite independent and this will be a big change for him, but safety takes precedence in this situation. Social service staff will have to coordinate with [facility] for appropriate transition in coordination with the family as well. Dr. Huntley, thank you for the opportunity to participate in your patient's care. We will follow with you. MAN Macario HURST MD DR: JOSE G/delores JOB#: [id number] / [id number]
[2019-04-02] VITALS (22 sets, daily range): BP systolic 87–114; BP diastolic 47–73
--- NOTE | 2019-04-02 04:59 | PN ---
DATE: 04/01/2019 SUBJECTIVE: The patient is an 84-year-old male patient who was admitted originally with urinary retention. While at the Emergency Room, he was found to be in atrial fibrillation with rapid ventricular response. His Bey catheter was changed and he was treated with adenosine 6 and 12 mg without improvement. Therefore, he was given a bolus of Cardizem and continued on Cardizem drip. He did receive also digoxin total of 500 mcg IV and furosemide 20 mg once and was admitted to the ICU on Cardizem drip. Unfortunately, he continued to have episodes of atrial fibrillation with rapid ventricular response for which he was seen by Dr. Arias who added metoprolol 25 mg twice a day. He also started him on apixaban. He also has runs of V-tach today. When I saw him this afternoon, he was resting, slightly propped up in bed, no apparent respiratory distress; however, he continued to have hypoxia despite being on 6 liters of oxygen and his oxygen saturation was only 89%. Unfortunately, his blood pressure is low, and given his severe hypoxia and the fact that he has had an episode of hemoptysis this morning, my plan is to arrange for him to have a CT scan of the chest with PE protocol as well as CT scan of the abdomen and pelvis with contrast. We will arrange for him to have a 3-way catheter for continuous bladder irrigation. I will hold off on anticoagulation for now given that he is bleeding. PHYSICAL EXAMINATION: VITAL SIGNS: His heart rate this afternoon was 95, blood pressure was 97/60. His temperature was 98.2, respiratory rate was 19 and oxygen saturation was 89% on 6 liters of oxygen. HEAD, EYES, EARS, NOSE AND THROAT: Showed normocephalic, atraumatic. NECK: Supple. HEART: Showed normal first and second heart sounds. No gallop or murmur. CHEST: Showed central trachea, equal bilateral expansion air entry, vesicular breath sounds. Very few bilateral basal crepitation. I could not appreciate any rhonchi. ABDOMEN: Scaphoid, soft, nontender. NEUROLOGIC: He was awake, alert, responding appropriately. All cranial nerves are intact. He moves extremities without difficulty, though he is mostly bedbound. His intake over the last 24 hours was 850, output was 2100. LABORATORY DATA: As of this morning, his white cell count was 8100, hemoglobin 11.9, hematocrit 34, MCV 90 and platelet count of 171,000. His chemistry showed a serum sodium 142, potassium 3.6, chloride 109, bicarbonate 26, anion gap of 7, BUN 20, creatinine 1.1, estimated GFR was 64 mL per minute. His glucose was 112, calcium was 7.8. Total bilirubin, AST, ALT and alkaline phosphatase were normal. Total protein was 5.6, albumin was 2.8. TSH was 0.77. ASSESSMENT: 1. Prostate cancer with benign prostatic hypertrophy and urinary retention, requiring indwelling Bey catheter. The patient was admitted with urinary retention due to blood clot. The catheter was changed. Unfortunately, now, he has gross hematuria. 2. Atrial fibrillation with rapid ventricular response for which he is now on Cardizem and metoprolol. He was started on apixaban, but I will hold on that given that he is actively bleeding. 3. Other medical problems include hypertension, unfortunately, if anything, he is hypotensive. Hyperlipidemia, prostate cancer, coronary artery disease, status post bypass graft surgery. PLAN: My plan is to arrange for a CT angio of the chest and CT scan of the abdomen and pelvis with contrast. We will arrange for him to have a 3-way catheter for continuous bladder irrigation and we will decide the further management accordingly. ALLISON STODDARD MD DR: SUKHDEV/delores JOB#: [id number] / [id number]
[2019-04-02 06:45] LABS: HEMATOCRIT 38.5 % (39.0-53.0); HEMOGLOBIN 12.8 g/dL (13.0-17.5); RED BLOOD COUNT 4.19 x10^6/uL (4.30-5.70); RED CELL DISTRIBUTION WIDTH 13.8 % (11.5-14.5); WHITE BLOOD COUNT 8.8 x10^3/uL (4.0-11.0)
[2019-04-02 07:01] LABS: ALBUMIN/GLOBULIN RATIO 0.9 (1.0-1.7); CALCIUM 8.5 mg/dL (8.5-10.1); CREATININE 1.2 mg/dL (0.7-1.3); GFR 57.7; POTASSIUM 3.8 mmol/L (3.5-5.1); TOTAL BILIRUBIN 1.1 mg/dL (0.2-1.0); TOTAL PROTEIN 6.3 g/dL (6.4-8.2)
[2019-04-02] MEDS: LACTOBACILLUS RHAMNOSUS GG 1 CAPSULE. PO SCH ×2 (08:34→20:03)
[2019-04-02] MEDS: TAMSULOSIN 0.4 MG CAP.ER.24H. PO SCH (08:34)
[2019-04-02] MEDS: SERTRALINE 100 MG TABLET. PO SCH (08:34)
[2019-04-02] MEDS: APIXABAN 5 MG TABLET. PO SCH (08:34)
[2019-04-02] MEDS: METOPROLOL TART IMMED RELEASE 25 MG TABLET PO SCH ×2 (08:34→21:00)
--- NOTE | 2019-04-02 08:41 | PDOC ---
CARDIO Progress Notes Date & Time Date of Service DATE: 04/02/19 TIME: 08:40 Time of Evaluation 08:40 Subjective Notes No CP, SOA, dizziness, diaphoresis Vitals Vitals Vital Signs Date Time Temp Pulse Resp B/P (MAP) Pulse Ox O2 Delivery O2 Flow Rate FiO2 04/02/19 08:34 110 109/56 04/02/19 06:34 92 Nasal Cannula 3.0 04/02/19 06:00 98.6 20 Weight Weight [ ] Input and Output I.O. Intake and Output 04/02/19 07:00 Intake Total 2445 ml Output Total 3575 ml Balance -1130 ml Intake Oral 2445 ml Output Urine Total 3575 ml Laboratory Labs Laboratory Tests Test 04/01/19 06:20 04/01/19 08:25 04/02/19 05:45 White Blood Count 8.1 x10^3/uL (4.0-11.0) 8.8 x10^3/uL (4.0-11.0) Red Blood Count 3.81 x10^6/uL (4.30-5.70) 4.19 x10^6/uL (4.30-5.70) Hemoglobin 11.9 g/dL (13.0-17.5) 12.8 g/dL (13.0-17.5) Hematocrit 34.1 % (39.0-53.0) 38.5 % (39.0-53.0) Mean Corpuscular Volume 90 fL (79-100) 92 fL (79-100) Mean Corpuscular Hemoglobin 31 pg (25-35) 31 pg (25-35) Mean Corpuscular Hemoglobin Concent 35 g/dL (31-37) 33 g/dL (31-37) Red Cell Distribution Width 13.8 % (11.5-14.5) 13.8 % (11.5-14.5) Platelet Count 171 x10^3/uL (140-400) 202 x10^3/uL (140-400) Sodium Level 142 mmol/L (136-145) 144 mmol/L (136-145) Potassium Level 3.6 mmol/L (3.5-5.1) 3.8 mmol/L (3.5-5.1) Chloride Level 109 mmol/L (98-107) 106 mmol/L (98-107) Carbon Dioxide Level 26 mmol/L (21-32) 29 mmol/L (21-32) Anion Gap 7 (6-14) 9 (6-14) Blood Urea Nitrogen 20 mg/dL (8-26) 20 mg/dL (8-26) Creatinine 1.1 mg/dL (0.7-1.3) 1.2 mg/dL (0.7-1.3) Estimated GFR (Cockcroft-Gault) 63.8 57.7 BUN/Creatinine Ratio 18 (6-20) 17 (6-20) Glucose Level 112 mg/dL (70-99) 90 mg/dL (70-99) Calcium Level 7.8 mg/dL (8.5-10.1) 8.5 mg/dL (8.5-10.1) Magnesium Level 1.9 mg/dL (1.8-2.4) 2.2 mg/dL (1.8-2.4) Total Bilirubin 0.9 mg/dL (0.2-1.0) 1.1 mg/dL (0.2-1.0) Aspartate Amino Transf (AST/SGOT) 24 U/L (15-37) 43 U/L (15-37) Alanine Aminotransferase (ALT/SGPT) 44 U/L (16-63) 66 U/L (16-63) Alkaline Phosphatase 67 U/L (46-116) 81 U/L (46-116) Total Protein 5.6 g/dL (6.4-8.2) 6.3 g/dL (6.4-8.2) Albumin 2.8 g/dL (3.4-5.0) 3.0 g/dL (3.4-5.0) Albumin/Globulin Ratio 1.0 (1.0-1.7) 0.9 (1.0-1.7) Thyroid Stimulating Hormone (TSH) 0.777 uIU/mL (0.358-3.740) Blood Gas pH 7.46 (7.35-7.46) Blood Gas PCO2 32 mmHg (35-46) Blood Gas PO2 64 mmHg (71-100) Blood Gas HCO3 23 mmol/L (21-28) Arterial Bld O2 Saturation (Calc) 94 % (92-99) FiO2 40 % Microbiology Micro Microbiology 03/31/19 Blood Culture - Preliminary, Resulted NO GROWTH AFTER 2 DAYS... Physical Exams HEENT: Neck Supple W Full Motion Chest: Symmetric Lungs: Clear to Auscultation, Other (diminished bases) Heart: S1S2, irregularly irregular (AFIB/flutter rate 115) Abdomen: Soft N/T Extremities: No Edema Neurology: alert, oriented, follow commands, confused (intermittent ) Assessment Assessment 1. Urinary retention secondary to clot. Ongoing hematuria. Follows with urology at [facility] 2. UTI with chronic hanson catheter. Changed upon admission 3. Prostate CA 4. Paroxysmal AFIB/flutter; reportedly new diagnosis this admission. Remains in AFIB/flutter. On oral metoprolol and low dose IV Cardizem. HR remains 115. 5. CAD s/p previous CABG. CP free. No acute ischemic changes. 6. Mild acute on chronic CHF; improved s/p diuresis. 7. Hypertension; BP low end 8. Hyperlipidemia 9. H/o abdominal aortic aneurysm s/p repair. Recommendations Echo to assess LV systolic function Lipid panel Discontinue Cardizem gtt Will give dose of IV dig and increase metoprolol for rate control as BP allows Discontinue Eliquis given ongoing hematuria Continue secondary prevention measures Consider for outpatient referral for LEANDER closure device Further pending above. MITCH GEIGER APRN Apr 02, 2019 08:41
[2019-04-02] MEDS ORDERED: DIGOXIN IV 500 MCG/2 ML AMPUL. IV ONE (09:45)
[2019-04-02] MEDS ORDERED: ANTI-COAG MONITOR BY PHARMACY. MC PRN (09:45)
[2019-04-02] MEDS ORDERED: METOPROLOL TART IMMED RELEASE 25 MG TABLET PO ONE ×2 (13:00→17:30)
[2019-04-02] MEDS ORDERED: FUROSEMIDE 20 MG/2 ML VIAL IVP ONE (13:15)
--- NOTE | 2019-04-02 15:01 | CARD ---
MR#: [id number] Date of Study: 04/02/2019 Ordering Physician: BRANDON HASSAN, Referring Physician: BRANDON HASSAN, Tech: Gely Puga FAUZIA APPROVED REPORT EXAM: Two-dimensional and M-mode echocardiogram with Doppler and color Doppler. Other Information Quality : AverageHR: 103bpm Rhythm : Atrial Fibrillation INDICATION Atrial Fibrillation 2D DIMENSIONS RVDd3.3 (2.9-3.5cm)Left Atrium(2D)4.0 (1.6-4.0cm) IVSd1.4 (0.7-1.1cm)Aortic Root(2D)4.3 (2.0-3.7cm) LVDd5.7 (3.9-5.9cm)PWd1.3 (0.7-1.1cm) LVDs5.0 (2.5-4.0cm)FS (%) 12.7 % SV43.8 mlLVEF(%)26.9 (>50%) M-Mode DIMENSIONS Left Atrium(MM)3.95 (2.5-4.0cm)Aortic Root4.24 (2.2-3.7cm) Aortic Valve AoV Peak Alexandre.133.6cm/sAoV VTI19.7cm AO Peak GR.7.1mmHgAO Mean GR.4mmHg SUNDEEP (VTI)1.00ed5TH P 1/2 [id number] Mitral Valve MV E Wabcbhav84.3cm/sMV DECEL [id number] MV A Ibvzshwq84.9cm/sE/A Ratio1.5 MV A Otdepisq88ov Tricuspid Valve TR P. Mwzyuuac381pz/sRAP KWOKCJVE5isGm TR Peak Gr.85ukBgHQIX98bbAf LEFT VENTRICLE The Left Ventricle is borderline dilated. There is mild concentric left ventricular hypertrophy. The left ventricular systolic function is moderate to severely impaired. The Ejection Fraction is 25-30%. There is global hypokinesis of the left ventricle. RIGHT VENTRICLE The right ventricle is normal size. There is normal right ventricular wall thickness. The right ventr icular systolic function is normal. ATRIA The left atrium is mildly dilated. The right atrium is mildly dilated. The interatrial septum is inta ct with no evidence for an atrial septal defect or patent foramen ovale as noted on 2-D or Doppler im aging. AORTIC VALVE The aortic valve is mildly thickened but opens well. The aortic valve is trileaflet. Doppler and [place] r Flow revealed moderate aortic regurgitation. There is no significant aortic valvular stenosis. MITRAL VALVE The mitral valve is thickened but opens well. There is no evidence of mitral valve prolapse. There is no mitral valve stenosis. Doppler and Color-flow revealed mild mitral regurgitation. TRICUSPID VALVE The tricuspid valve is normal in structure and function. Doppler and Color Flow revealed mild tricusp id regurgitation. The PA pressure was estimated at 40 mmHg. There is no tricuspid valve prolapse or v egetation. There is no tricuspid valve stenosis. PULMONIC VALVE The pulmonic valve is not well visualized. GREAT VESSELS The aortic root is mildly enlarged. The IVC is dilated. PERICARDIAL EFFUSION There is no evidence of significant pericardial effusion. Critical Notification Critical Value: No <Conclusion> The left ventricular systolic function is moderate to severely impaired. The Ejection Fraction is 25-30%. Moderate aortic regurgitation. Mild mitral regurgitation. Mild tricuspid regurgitation. The PA pressure was estimated at 40 mmHg. There is no evidence of significant pericardial effusion. Signed by : Jackson Marino, Electronically Approved : 04/02/2019 15:01:07
[2019-04-02] MEDS ORDERED: DOCUSATE SODIUM 100 MG CAPSULE PO ONE (17:15)
--- NOTE | 2019-04-02 19:28 | PN ---
DATE: 04/02/2019 SUBJECTIVE: The patient is sitting in his chair, eating his lunch comfortably, in no apparent distress. He denied any chest pain, shortness of breath, dizziness, lightheadedness, or palpitation. His Cardizem drip was discontinued and he is now on metoprolol and also digoxin. He was treated yesterday with IV Lasix and his output was 2100 and this morning, has 3975 out. PHYSICAL EXAMINATION: GENERAL: When I examined him this morning, he looked well and was clearly in no apparent respiratory distress. No pallor, jaundice, cyanosis or thyromegaly. No jugular venous distention. No limb edema. VITAL SIGNS: His heart rate was 92, blood pressure 100/62, temperature was 98.7, respiratory rate 22, and oxygen saturation was 96% on 4 liters of oxygen. HEAD, EYES, EARS, NOSE AND THROAT: Showed normocephalic, atraumatic. NECK: Supple. HEART: Showed normal first and second heart sounds. No gallop, rub or murmur. CHEST: Clear to auscultation. No crepitation or rhonchi. ABDOMEN: Scaphoid, soft, nontender. NEUROLOGIC: He is awake, alert, responding appropriately. All cranial nerves are intact. He moves extremities without difficulty, has an indwelling Bey catheter. His intake over the last 24 hours was 3445, output was 3975. LABORATORY DATA: His lab work this morning showed a white cell count of 8800, hemoglobin 12.8, hematocrit 38.5, MCV 92, and platelet count 202,000. His chemistry showed a serum sodium 144, potassium 3.8, chloride 106, bicarbonate 29, anion gap of 9, BUN 20, creatinine 1.2, estimated GFR was 57 mL per minute. His glucose was 90, calcium was 8.5, magnesium was 2.2. Total bilirubin and alkaline phosphatase is normal. AST, ALT slightly elevated. Total protein was 6.3, albumin was 3. His TSH and B12 are normal. ASSESSMENT: 1. Prostate cancer with benign prostatic hypertrophy and renal retention, requiring indwelling Bey catheter. The patient was admitted with urinary retention due to blood clot. The catheter was changed. Unfortunately, he continued to have hematuria. 2. Atrial fibrillation with rapid ventricular response for which he is on metoprolol and digoxin. I did discontinue the apixaban given that he is actively bleeding. 3. Other medical problems include: A. Congestive heart failure. B. Coronary artery disease, status post coronary artery bypass graft surgery. C. Hyperlipidemia. D. Prostate cancer. E. CT scan of the chest showed that the patient has no evidence of central lobar or segmental pulmonary embolus. He has patchy multifocal airspace disease, edema versus pneumonia. There is small to moderate bilateral sized bilateral pleural effusion, moderate superior endplate with compression fracture at L3, likely acute. F. Emphysema. G. Prostatomegaly. H. Diverticulosis. I. He also had urinary tract infection. The urine and blood cultures are still pending at the time of this dictation. PLAN: Obviously to continue with IV antibiotic in the form of ceftriaxone. I have discontinued his apixaban. We will continue with metoprolol and digoxin. The patient was seen by the student activities director and the patient was treated with heart failure, has an echocardiogram to assess the left ventricular function. ALLISON STODDARD MD DR: SUKHDEV/delores JOB#: [id number] / [id number]
[2019-04-02] MEDS: MIRTAZAPINE 15 MG TABLET PO SCH (20:03)
--- NOTE | 2019-04-02 20:44 | PDOC ---
Exam Note: Kin Note: Please also refer to the separate dictated note~for this date of service dictated separately.~Patient seen individually. Discussed the patient with Nursing staff reviewed the chart.~Reviewed interim history and current functioning. Reviewed vital signs,~Labs/ Radiology~and current medications noted below. Continue current treatment with the changes noted in the dictated addendum note Assessment: Vital Signs/I&O: Vital Signs Date Time Temp Pulse Resp B/P (MAP) Pulse Ox O2 Delivery O2 Flow Rate FiO2 04/02/19 20:00 97 20 89/49 (62) 91 Nasal Cannula 4.0 04/02/19 19:07 97.7 I & O 04/01/19 04/01/19 04/02/19 15:00 23:00 07:00 Intake Total 1980 ml 415 ml 50 ml Output Total 750 ml 1450 ml 1375 ml Balance 1230 ml -1035 ml -1325 ml Labs: Laboratory Tests Test 04/02/19 05:45 White Blood Count 8.8 x10^3/uL (4.0-11.0) Red Blood Count 4.19 x10^6/uL (4.30-5.70) L Hemoglobin 12.8 g/dL (13.0-17.5) L Hematocrit 38.5 % (39.0-53.0) L Mean Corpuscular Volume 92 fL (79-100) Mean Corpuscular Hemoglobin 31 pg (25-35) Mean Corpuscular Hemoglobin Concent 33 g/dL (31-37) Red Cell Distribution Width 13.8 % (11.5-14.5) Platelet Count 202 x10^3/uL (140-400) Sodium Level 144 mmol/L (136-145) Potassium Level 3.8 mmol/L (3.5-5.1) Chloride Level 106 mmol/L (98-107) Carbon Dioxide Level 29 mmol/L (21-32) Anion Gap 9 (6-14) Blood Urea Nitrogen 20 mg/dL (8-26) Creatinine 1.2 mg/dL (0.7-1.3) Estimated GFR (Cockcroft-Gault) 57.7 BUN/Creatinine Ratio 17 (6-20) Glucose Level 90 mg/dL (70-99) Calcium Level 8.5 mg/dL (8.5-10.1) Magnesium Level 2.2 mg/dL (1.8-2.4) Total Bilirubin 1.1 mg/dL (0.2-1.0) H Aspartate Amino Transferase (AST) 43 U/L (15-37) H Alanine Aminotransferase (ALT) 66 U/L (16-63) H Alkaline Phosphatase 81 U/L (46-116) Total Protein 6.3 g/dL (6.4-8.2) L Albumin 3.0 g/dL (3.4-5.0) L Albumin/Globulin Ratio 0.9 (1.0-1.7) L Triglycerides Level 63 mg/dL (0-150) Cholesterol Level 140 mg/dL (0-200) LDL Cholesterol, Calculated 81 mg/dL (0-100) VLDL Cholesterol, Calculated 12 mg/dL (0-40) Non-HDL Cholesterol Calculated 93 mg/dL (0-129) HDL Cholesterol 47 mg/dL (40-60) Cholesterol/HDL Ratio 2.0 Current Medications: Meds: Current Medications Medications (Trade) Dose Ordered Sig/Andrew Route PRN Reason Start Time Stop Time Status Last Admin Dose Admin Digoxin (Lanoxin) 250 mcg 1X ONCE IV 04/02/19 09:45 04/02/19 09:47 DC 04/02/19 09:26 Furosemide (Lasix) 20 mg 1X ONCE IVP 04/02/19 13:15 04/02/19 13:16 DC 04/02/19 12:56 Metoprolol Tartrate (Lopressor) 25 mg 1X ONCE PO 04/02/19 13:00 04/02/19 13:01 DC 04/02/19 17:29 Docusate Sodium (Colace) 100 mg 1X ONCE PO 04/02/19 17:15 04/02/19 17:16 DC 04/02/19 17:15 I have reviewed the current psychotropics carefully including drug interactions. Risk benefit ratio favors no change other than as noted in my dictated progress note. Diagnosis: Problems: (1) Atrial flutter (2) Urinary catheter complication (3) Anxiety disorder (4) Mild cognitive impairment CATHERINE HURST MD Apr 02, 2019 20:44
--- NOTE | 2019-04-02 23:31 | PN ---
DATE: 04/01/2019 PSYCHIATRIC PROGRESS NOTE This late entry 04/01/2019 covers the elements not covered in my initial note. This note covers the elements not covered in my initial note. SUBJECTIVE: Per nursing report, the patient has been appropriate, cooperative, does have short term memory deficits, seems to minimize this. A CT head is clinically insignificant. TSH is unremarkable. Folate, B12 are awaited. He has been somewhat sedated in the evening. MENTAL STATUS EXAM: Per nursing report, he has been oriented to place and situation. Speech has been coherent, abstraction, fair computation would be unchanged from my prior note. No active suicidal or homicidal ideation, he minimizes any depressive symptoms. LABORATORY DATA: Reviewed. IMPRESSION: Unchanged from initial note. PLAN: No change from initial note. It is perhaps the best that he has a formal driving test to ensure safety and social service staff should help coordinate with the [facility] for appropriate services in the home or an assisted living placement. CATHERINE HURST MD DR: JOSE G/delores JOB#: [id number] / [id number]
[2019-04-03] VITALS (23 sets, daily range): BP systolic 95–136; BP diastolic 56–83
[2019-04-03 06:05] LABS: HEMATOCRIT 37.8 % (39.0-53.0); HEMOGLOBIN 12.6 g/dL (13.0-17.5); RED BLOOD COUNT 4.1 x10^6/uL (4.30-5.70); RED CELL DISTRIBUTION WIDTH 13.9 % (11.5-14.5); WHITE BLOOD COUNT 8.2 x10^3/uL (4.0-11.0)
[2019-04-03 06:21] LABS: ALBUMIN 2.6 g/dL (3.4-5.0); ALBUMIN/GLOBULIN RATIO 0.8 (1.0-1.7); CALCIUM 8.2 mg/dL (8.5-10.1); GFR 71.2; POTASSIUM 3.7 mmol/L (3.5-5.1); TOTAL BILIRUBIN 0.7 mg/dL (0.2-1.0); TOTAL PROTEIN 5.7 g/dL (6.4-8.2)
[2019-04-03] MEDS: SERTRALINE 100 MG TABLET. PO SCH (07:39)
[2019-04-03] MEDS: DOCUSATE SODIUM 100 MG CAPSULE PO SCH (07:39)
[2019-04-03] MEDS: LACTOBACILLUS RHAMNOSUS GG 1 CAPSULE. PO SCH ×2 (07:39→20:00)
[2019-04-03] MEDS: TAMSULOSIN 0.4 MG CAP.ER.24H. PO SCH (07:39)
[2019-04-03] MEDS: METOPROLOL TART IMMED RELEASE 25 MG TABLET PO SCH ×2 (07:40→20:01)
--- NOTE | 2019-04-03 08:26 | PDOC ---
CARDIO Progress Notes Date & Time Date of Service DATE: 04/03/19 TIME: 08:25 Time of Evaluation 08:25 Subjective Notes No shortness of breath, dizziness, chest pain, palpitations. Vitals Vitals Vital Signs Date Time Temp Pulse Resp B/P (MAP) Pulse Ox O2 Delivery O2 Flow Rate FiO2 04/03/19 08:14 99 20 100/57 (71) 93 Nasal Cannula 4.0 04/03/19 04:00 97.5 Weight Weight [ ] Input and Output I.O. Intake and Output 04/03/19 07:00 Intake Total 2120 ml Output Total 2350 ml Balance -230 ml Intake Oral 2070 ml IV Total 50 ml Output Urine Total 2350 ml Laboratory Labs Laboratory Tests Test 04/02/19 05:45 04/03/19 05:40 White Blood Count 8.8 x10^3/uL (4.0-11.0) 8.2 x10^3/uL (4.0-11.0) Red Blood Count 4.19 x10^6/uL (4.30-5.70) 4.10 x10^6/uL (4.30-5.70) Hemoglobin 12.8 g/dL (13.0-17.5) 12.6 g/dL (13.0-17.5) Hematocrit 38.5 % (39.0-53.0) 37.8 % (39.0-53.0) Mean Corpuscular Volume 92 fL (79-100) 92 fL (79-100) Mean Corpuscular Hemoglobin 31 pg (25-35) 31 pg (25-35) Mean Corpuscular Hemoglobin Concent 33 g/dL (31-37) 33 g/dL (31-37) Red Cell Distribution Width 13.8 % (11.5-14.5) 13.9 % (11.5-14.5) Platelet Count 202 x10^3/uL (140-400) 207 x10^3/uL (140-400) Sodium Level 144 mmol/L (136-145) 141 mmol/L (136-145) Potassium Level 3.8 mmol/L (3.5-5.1) 3.7 mmol/L (3.5-5.1) Chloride Level 106 mmol/L (98-107) 106 mmol/L (98-107) Carbon Dioxide Level 29 mmol/L (21-32) 27 mmol/L (21-32) Anion Gap 9 (6-14) 8 (6-14) Blood Urea Nitrogen 20 mg/dL (8-26) 28 mg/dL (8-26) Creatinine 1.2 mg/dL (0.7-1.3) 1.0 mg/dL (0.7-1.3) Estimated GFR (Cockcroft-Gault) 57.7 71.2 BUN/Creatinine Ratio 17 (6-20) 28 (6-20) Glucose Level 90 mg/dL (70-99) 94 mg/dL (70-99) Calcium Level 8.5 mg/dL (8.5-10.1) 8.2 mg/dL (8.5-10.1) Magnesium Level 2.2 mg/dL (1.8-2.4) Total Bilirubin 1.1 mg/dL (0.2-1.0) 0.7 mg/dL (0.2-1.0) Aspartate Amino Transf (AST/SGOT) 43 U/L (15-37) 29 U/L (15-37) Alanine Aminotransferase (ALT/SGPT) 66 U/L (16-63) 50 U/L (16-63) Alkaline Phosphatase 81 U/L (46-116) 72 U/L (46-116) Total Protein 6.3 g/dL (6.4-8.2) 5.7 g/dL (6.4-8.2) Albumin 3.0 g/dL (3.4-5.0) 2.6 g/dL (3.4-5.0) Albumin/Globulin Ratio 0.9 (1.0-1.7) 0.8 (1.0-1.7) Triglycerides Level 63 mg/dL (0-150) Cholesterol Level 140 mg/dL (0-200) LDL Cholesterol, Calculated 81 mg/dL (0-100) VLDL Cholesterol, Calculated 12 mg/dL (0-40) Non-HDL Cholesterol Calculated 93 mg/dL (0-129) HDL Cholesterol 47 mg/dL (40-60) Cholesterol/HDL Ratio 2.0 Microbiology Micro Microbiology 03/31/19 Blood Culture - Preliminary, Resulted NO GROWTH AFTER 3 DAYS... 03/31/19 Urine Culture - Preliminary, Resulted 03/31/19 Urine Culture Result 1 (TELMA) - Preliminary, Resulted Physical Exams HEENT: Neck Supple W Full Motion Chest: Symmetric Lungs: Clear to Auscultation, Other (diminished bases) Heart: S1S2, irregularly irregular (rate near 80) Abdomen: Soft N/T Extremities: No Edema Neurology: alert, oriented, follow commands, confused (intermittent ) Assessment Assessment 1. Urinary retention secondary to clot. Hematuria improved. Follows with urology at [place] 2. UTI with chronic hanson catheter. Changed upon admission 3. Prostate CA 4. Paroxysmal AFIB/flutter; Remains in AFIB/flutter; HR in the 40's while sleeping this am. No pauses. 5. CAD s/p previous CABG (2007); CP free. No acute ischemic changes. 6. Mild acute on chronic systolic CHF with probable ICM; improved s/p diuresis. Echo with LVEF 25-30% 7. Hypertension; BP low end 8. Hyperlipidemia 9. H/o abdominal aortic aneurysm s/p repair. 10. Encephalopathy Recommendations Decrease metoprolol to 25mg BID. Convert to long-acting prior to discharge given CMP BP will not currently tolerate addition of ACEi Consider outpatient event monitor to r/o [facility]. Most recent echo conducted at was in 2007 with LVEF 40-45% Continue secondary prevention measures Outpatient referral for LEANDER closure device MITCH GEIGER APRN Apr 03, 2019 08:26
--- NOTE | 2019-04-03 09:00 | PDOC ---
CARDIO Progress Notes Date & Time Date of Service DATE: 04/03/19 TIME: 08:49 Time of Evaluation 08:49 Vitals Vitals Vital Signs Date Time Temp Pulse Resp B/P (MAP) Pulse Ox O2 Delivery O2 Flow Rate FiO2 04/03/19 08:14 99 20 100/57 (71) 93 Nasal Cannula 4.0 04/03/19 04:00 97.5 Weight Weight [ ] Input and Output I.O. Intake and Output 04/03/19 07:00 Intake Total 2120 ml Output Total 2350 ml Balance -230 ml Intake Oral 2070 ml IV Total 50 ml Output Urine Total 2350 ml Laboratory Labs Laboratory Tests Test 04/02/19 05:45 04/03/19 05:40 White Blood Count 8.8 x10^3/uL (4.0-11.0) 8.2 x10^3/uL (4.0-11.0) Red Blood Count 4.19 x10^6/uL (4.30-5.70) 4.10 x10^6/uL (4.30-5.70) Hemoglobin 12.8 g/dL (13.0-17.5) 12.6 g/dL (13.0-17.5) Hematocrit 38.5 % (39.0-53.0) 37.8 % (39.0-53.0) Mean Corpuscular Volume 92 fL (79-100) 92 fL (79-100) Mean Corpuscular Hemoglobin 31 pg (25-35) 31 pg (25-35) Mean Corpuscular Hemoglobin Concent 33 g/dL (31-37) 33 g/dL (31-37) Red Cell Distribution Width 13.8 % (11.5-14.5) 13.9 % (11.5-14.5) Platelet Count 202 x10^3/uL (140-400) 207 x10^3/uL (140-400) Sodium Level 144 mmol/L (136-145) 141 mmol/L (136-145) Potassium Level 3.8 mmol/L (3.5-5.1) 3.7 mmol/L (3.5-5.1) Chloride Level 106 mmol/L (98-107) 106 mmol/L (98-107) Carbon Dioxide Level 29 mmol/L (21-32) 27 mmol/L (21-32) Anion Gap 9 (6-14) 8 (6-14) Blood Urea Nitrogen 20 mg/dL (8-26) 28 mg/dL (8-26) Creatinine 1.2 mg/dL (0.7-1.3) 1.0 mg/dL (0.7-1.3) Estimated GFR (Cockcroft-Gault) 57.7 71.2 BUN/Creatinine Ratio 17 (6-20) 28 (6-20) Glucose Level 90 mg/dL (70-99) 94 mg/dL (70-99) Calcium Level 8.5 mg/dL (8.5-10.1) 8.2 mg/dL (8.5-10.1) Magnesium Level 2.2 mg/dL (1.8-2.4) Total Bilirubin 1.1 mg/dL (0.2-1.0) 0.7 mg/dL (0.2-1.0) Aspartate Amino Transf (AST/SGOT) 43 U/L (15-37) 29 U/L (15-37) Alanine Aminotransferase (ALT/SGPT) 66 U/L (16-63) 50 U/L (16-63) Alkaline Phosphatase 81 U/L (46-116) 72 U/L (46-116) Total Protein 6.3 g/dL (6.4-8.2) 5.7 g/dL (6.4-8.2) Albumin 3.0 g/dL (3.4-5.0) 2.6 g/dL (3.4-5.0) Albumin/Globulin Ratio 0.9 (1.0-1.7) 0.8 (1.0-1.7) Triglycerides Level 63 mg/dL (0-150) Cholesterol Level 140 mg/dL (0-200) LDL Cholesterol, Calculated 81 mg/dL (0-100) VLDL Cholesterol, Calculated 12 mg/dL (0-40) Non-HDL Cholesterol Calculated 93 mg/dL (0-129) HDL Cholesterol 47 mg/dL (40-60) Cholesterol/HDL Ratio 2.0 Microbiology Micro Microbiology 03/31/19 Blood Culture - Preliminary, Resulted NO GROWTH AFTER 3 DAYS... 03/31/19 Urine Culture - Preliminary, Resulted 03/31/19 Urine Culture Result 1 (TELMA) - Preliminary, Resulted Physical Exams HEENT: Neck Supple W Full Motion Chest: Symmetric Lungs: Clear to Auscultation, Other (diminished bases) Heart: S1S2, irregularly irregular (AFIB/flutter rate 115) Abdomen: Soft N/T Extremities: No Edema Neurology: alert, oriented, follow commands, confused (intermittent ) Assessment Assessment 1. Urinary retention secondary to clot. Ongoing hematuria. Follows with urology at [place] 2. UTI with chronic hanson catheter. Changed upon admission 3. Prostate CA 4. Paroxysmal AFIB/flutter; Remains in AFIB/flutter; HR in the 40's while sleeping this am. No pauses. 5. CAD s/p previous CABG. CP free. No acute ischemic changes. 6. Mild acute on chronic systolic CHF with probable ICM; improved s/p diuresis. Echo with LVEF 25-30% 7. Hypertension; BP low end 8. Hyperlipidemia 9. H/o abdominal aortic aneurysm s/p repair. 10. Encephalopathy Recommendations Decrease metoprolol to 25mg BID. Convert to long-acting prior to discharge given CMP BP will not currently tolerate addition of ACEi Consider outpatient event monitor [facility] Continue secondary prevention measures May need further ischemic workup outpatient referral for LEANDER closure device MITCH GEIGER APRN Apr 03, 2019 09:00
[2019-04-03] MEDS: ASPIRIN ENTERIC COATED 81 MG TABLET.DR. PO SCH (13:33)
[2019-04-03] MEDS ORDERED: DIGOXIN IV 500 MCG/2 ML AMPUL. IV ONE (17:30)
[2019-04-03] MEDS: ATORVASTATIN CALCIUM 20 MG TABLET PO SCH (20:00)
[2019-04-03] MEDS: MIRTAZAPINE 15 MG TABLET PO SCH (20:00)
--- NOTE | 2019-04-03 20:39 | PN ---
DATE: 04/03/2019 SUBJECTIVE: The patient is resting, slightly propped up in bed, in no apparent distress. On questioning him, he denied any shortness of breath, orthopnea or paroxysmal nocturnal dyspnea. Denied any cough, phlegm or hemoptysis. Denied any swelling of his legs. Denied any dizziness or lightheadedness. PHYSICAL EXAMINATION: GENERAL: On examining him, he looked well and was clearly in no apparent respiratory distress. No pallor, jaundice, cyanosis or thyromegaly. No jugular venous distention. No limb edema. VITAL SIGNS: His heart rate was 99, irregularly irregular, blood pressure was 95/65, temperature was 97.5, respiratory rate was 21 and oxygen saturation was 93% on 3.5 liters of oxygen. HEAD, EYES, EARS, NOSE AND THROAT: Showed normocephalic, atraumatic. NECK: Supple. HEART: Showed normal first and second heart sounds. No gallop or murmur. CHEST: Showed central trachea, equal bilateral expansion, air entry, vesicular sounds with bilateral basal crepitation, no rhonchi. ABDOMEN: Scaphoid, soft, nontender. NEUROLOGIC: He is awake, alert, responding appropriately. All cranial nerves are intact. He moves extremities without difficulty, ambulates with a cane at home. His intake was 2495, output was 3975. LABORATORY DATA: His lab work this morning showed a white cell count of 8000, hemoglobin 12.6, hematocrit 37.8, MCV 92, and platelet count 207,000. Serum sodium was 141, potassium 3.7, chloride 106, bicarbonate 27, anion gap of 8, BUN 28, creatinine 1, estimated GFR was 71. His glucose was 94, calcium was 8.2. Total bilirubin, AST, ALT, alkaline phosphatase were normal. Total protein was 5.7, albumin was 2.6. Serum triglycerides were 63, total cholesterol 140, LDL was 81, VLDL was 12, HDL was 47, the ratio was 2. His echocardiogram showed that the patient has left ventricular systolic function is moderately to severely impaired, ejection fraction is 25-30%, moderate aortic regurgitation, mild mitral regurgitation, mild tricuspid regurgitation. The pulmonary artery pressure was estimated at 40 mmHg. There is no evidence of significant pericardial effusion. SUMMARY: 1. Urinary retention secondary to clot. His Bey catheter was removed and new one was placed. His urine is generally clear except very few small clots. 2. Urinary tract infection for which he is on IV ceftriaxone. Urine culture has grown more than 100,000 colony forming units per mL of gram-negative rods, identification and sensitivity is still pending. Has prostate cancer. 3. Paroxysmal atrial fibrillation/flutter, remains in atrial fibrillation/flutter, heart rate in the mid 90s, drips down to 40s while asleep. 4. Coronary artery disease, status post coronary artery bypass graft in 2007. He is currently asymptomatic. 5. Mild acute on chronic systolic congestive heart failure due to ischemic cardiomyopathy for which he was treated with IV Lasix. 6. Hypertension. 7. Hyperlipidemia. 8. Status post abdominal aortic aneurysm repair. PLAN: Continue with metoprolol, atorvastatin and aspirin together with the Flomax and IV ceftriaxone. Await the results of culture and sensitivity with the records from the [place] and [facility]. ALLISON STODDARD MD DR: SUKHDEV/delores JOB#: [id number] / [id number]
--- NOTE | 2019-04-03 21:04 | PDOC ---
Exam Note: Kin Note: Please also refer to the separate dictated note~for this date of service dictated separately.~Patient seen individually. Discussed the patient with Nursing staff reviewed the chart.~Reviewed interim history and current functioning. Reviewed vital signs,~Labs/ Radiology~and current medications noted below. Continue current treatment with the changes noted in the dictated addendum note Assessment: Vital Signs/I&O: Vital Signs Date Time Temp Pulse Resp B/P (MAP) Pulse Ox O2 Delivery O2 Flow Rate FiO2 04/03/19 21:00 97 19 122/83 (96) 96 Nasal Cannula 2.0 04/03/19 19:05 98.1 I & O 04/02/19 04/02/19 04/03/19 15:00 23:00 07:00 Intake Total 1130 ml 740 ml 250 ml Output Total 350 ml 1000 ml 1000 ml Balance 780 ml -260 ml -750 ml Labs: Laboratory Tests Test 04/03/19 05:40 White Blood Count 8.2 x10^3/uL (4.0-11.0) Red Blood Count 4.10 x10^6/uL (4.30-5.70) L Hemoglobin 12.6 g/dL (13.0-17.5) L Hematocrit 37.8 % (39.0-53.0) L Mean Corpuscular Volume 92 fL (79-100) Mean Corpuscular Hemoglobin 31 pg (25-35) Mean Corpuscular Hemoglobin Concent 33 g/dL (31-37) Red Cell Distribution Width 13.9 % (11.5-14.5) Platelet Count 207 x10^3/uL (140-400) Sodium Level 141 mmol/L (136-145) Potassium Level 3.7 mmol/L (3.5-5.1) Chloride Level 106 mmol/L (98-107) Carbon Dioxide Level 27 mmol/L (21-32) Anion Gap 8 (6-14) Blood Urea Nitrogen 28 mg/dL (8-26) H Creatinine 1.0 mg/dL (0.7-1.3) Estimated GFR (Cockcroft-Gault) 71.2 BUN/Creatinine Ratio 28 (6-20) H Glucose Level 94 mg/dL (70-99) Calcium Level 8.2 mg/dL (8.5-10.1) L Total Bilirubin 0.7 mg/dL (0.2-1.0) Aspartate Amino Transferase (AST) 29 U/L (15-37) Alanine Aminotransferase (ALT) 50 U/L (16-63) Alkaline Phosphatase 72 U/L (46-116) Total Protein 5.7 g/dL (6.4-8.2) L Albumin 2.6 g/dL (3.4-5.0) L Albumin/Globulin Ratio 0.8 (1.0-1.7) L Current Medications: Meds: Current Medications Medications (Trade) Dose Ordered Sig/Andrew Route PRN Reason Start Time Stop Time Status Last Admin Dose Admin Docusate Sodium (Colace) 100 mg DAILY PO 04/03/19 09:00 04/03/19 07:39 Metoprolol Tartrate (Lopressor) 25 mg BID PO 04/03/19 21:00 04/03/19 20:01 Aspirin (Aspirin Enteric Coated) 81 mg DAILYWBKFT PO 04/03/19 11:00 04/03/19 13:33 Atorvastatin Calcium (Lipitor) 20 mg QHS PO 04/03/19 21:00 04/03/19 20:00 Digoxin (Lanoxin) 500 mcg 1X ONCE IV 04/03/19 17:30 04/03/19 17:31 DC 04/03/19 17:25 I have reviewed the current psychotropics carefully including drug interactions. Risk benefit ratio favors no change other than as noted in my dictated progress note. Diagnosis: Problems: (1) Atrial flutter (2) Urinary catheter complication (3) Anxiety disorder (4) Mild cognitive impairment CATHERINE HURST MD Apr 03, 2019 21:04
--- NOTE | 2019-04-03 23:46 | PN ---
DATE: 04/02/2019 PSYCHIATRIC PROGRESS NOTE This late entry 04/02/2019 covers elements not covered in my initial note. SUBJECTIVE: I met with the patient at length the evening of 04/02/2019 in the ICU, bed 4. The patient did not remember seeing me before, even though I have seen him a couple of times. We discussed his memory problems. He gets quite hyperverbal, camouflaging the memory deficits, but accepts that he is forgetful. He is reluctant to look at alternate arrangements, but still open to considering this and he will discuss with Naomie Mcelroy RN case manager about this and about the driving to be curtailed until he is evaluated for this formally. REVIEW OF SYSTEMS: Positive for some tiredness. No CV, , pulmonary, eye system symptoms on review. MENTAL STATUS EXAM: Oriented to himself and situation. Speech coherent, rapid at times. Abstraction fair, computation impaired, language function intact. Mood and affect remains anxious. LABORATORY DATA: Reviewed. IMPRESSION: Unchanged from initial note. PLAN: No change from initial note. I think it will be good for the patient to be evaluated by social service staff about appropriate arrangements at home including driving to be evaluated formally by driving test and perhaps involving [facility] with appropriate level of care, determinations to be made. CATHERINE HURST MD DR: JOSE G/delores JOB#: [id number] / [id number]
[2019-04-04] VITALS (20 sets, daily range): BP systolic 89–130; BP diastolic 53–86
[2019-04-04 06:17] LABS: CALCIUM 8.7 mg/dL (8.5-10.1); GFR 71.2; MAGNESIUM 2.1 mg/dL (1.8-2.4); POTASSIUM 3.9 mmol/L (3.5-5.1)
--- NOTE | 2019-04-04 07:51 | PDOC ---
CARDIO Progress Notes Date & Time Date of Service DATE: 04/04/19 TIME: 07:51 Time of Evaluation 07:51 Subjective Notes No chest pain, palpitations, dizziness, diaphoresis, or nausea/vomiting. Has some abdominal discomfort this am. Vitals Vitals Vital Signs Date Time Temp Pulse Resp B/P (MAP) Pulse Ox O2 Delivery O2 Flow Rate FiO2 04/04/19 07:04 99 22 110/71 (84) 93 Nasal Cannula 2.0 04/04/19 04:48 98.5 Weight Weight [ ] Input and Output I.O. Intake and Output 04/04/19 07:00 Intake Total 1600 ml Output Total 2300 ml Balance -700 ml Intake Oral 1550 ml IV Total 50 ml Output Urine Total 2300 ml # Bowel Movements 2 Laboratory Labs Laboratory Tests Test 04/03/19 05:40 04/04/19 05:35 White Blood Count 8.2 x10^3/uL (4.0-11.0) Red Blood Count 4.10 x10^6/uL (4.30-5.70) Hemoglobin 12.6 g/dL (13.0-17.5) Hematocrit 37.8 % (39.0-53.0) Mean Corpuscular Volume 92 fL (79-100) Mean Corpuscular Hemoglobin 31 pg (25-35) Mean Corpuscular Hemoglobin Concent 33 g/dL (31-37) Red Cell Distribution Width 13.9 % (11.5-14.5) Platelet Count 207 x10^3/uL (140-400) Sodium Level 141 mmol/L (136-145) 142 mmol/L (136-145) Potassium Level 3.7 mmol/L (3.5-5.1) 3.9 mmol/L (3.5-5.1) Chloride Level 106 mmol/L (98-107) 107 mmol/L (98-107) Carbon Dioxide Level 27 mmol/L (21-32) 27 mmol/L (21-32) Anion Gap 8 (6-14) 8 (6-14) Blood Urea Nitrogen 28 mg/dL (8-26) 24 mg/dL (8-26) Creatinine 1.0 mg/dL (0.7-1.3) 1.0 mg/dL (0.7-1.3) Estimated GFR (Cockcroft-Gault) 71.2 71.2 BUN/Creatinine Ratio 28 (6-20) Glucose Level 94 mg/dL (70-99) 124 mg/dL (70-99) Calcium Level 8.2 mg/dL (8.5-10.1) 8.7 mg/dL (8.5-10.1) Total Bilirubin 0.7 mg/dL (0.2-1.0) Aspartate Amino Transf (AST/SGOT) 29 U/L (15-37) Alanine Aminotransferase (ALT/SGPT) 50 U/L (16-63) Alkaline Phosphatase 72 U/L (46-116) Total Protein 5.7 g/dL (6.4-8.2) Albumin 2.6 g/dL (3.4-5.0) Albumin/Globulin Ratio 0.8 (1.0-1.7) Magnesium Level 2.1 mg/dL (1.8-2.4) Microbiology Micro Microbiology 03/31/19 Blood Culture - Preliminary, Resulted NO GROWTH AFTER 4 DAYS... 03/31/19 Urine Culture - Preliminary, Resulted 03/31/19 Urine Culture Result 1 (TELMA) - Preliminary, Resulted Physical Exams HEENT: Neck Supple W Full Motion Chest: Symmetric Lungs: Clear to Auscultation, Other (diminished bases) Heart: S1S2, irregularly irregular (rate near 80) Abdomen: Soft N/T Extremities: No Edema Neurology: alert, oriented, follow commands, confused (intermittent ) Assessment Assessment 1. Urinary retention secondary to clot. Hematuria resolved. Follows with urology at [place] 2. UTI with chronic hanson catheter. Changed upon admission 3. Prostate CA 4. Paroxysmal AFIB/flutter; Remains in AFIB/flutter; RVR again yesterday evening requiring IV Digoxin 5. CAD s/p previous CABG (2007); CP free. No acute ischemic changes. 6. Mild acute on chronic systolic CHF with probable ICM; improved s/p diuresis. Echo with LVEF 25-30%. Appears compensated 7. Hypertension; BP low end 8. Hyperlipidemia; statin 9. H/o abdominal aortic aneurysm s/p repair. 10. Encephalopathy; improved but remains with some confusion Recommendations Will increase metoprolol for better rate control If BP adequate with above, add low-dose ACEi for HF optimization Outpatient event monitor CV would be ideal, but patient would need to be on OAC following Continue secondary prevention measures Outpatient referral for LEANDER closure device About discussed with Mario FOSTER. Patient normally receives care at the [place], although does not see ammunition supervisor there. Mario will discuss with patient whether he would like to follow up with our services, or have cardiac workup and followup through the [facility] [place]. MITCH GEIGER APRN Apr 04, 2019 07:51
[2019-04-04] MEDS: DOCUSATE SODIUM 100 MG CAPSULE PO SCH (08:48)
[2019-04-04] MEDS: TAMSULOSIN 0.4 MG CAP.ER.24H. PO SCH (08:48)
[2019-04-04] MEDS: METOPROLOL TART IMMED RELEASE 25 MG TABLET PO SCH ×2 (08:49→21:32)
[2019-04-04] MEDS: SERTRALINE 100 MG TABLET. PO SCH (08:49)
[2019-04-04] MEDS: LACTOBACILLUS RHAMNOSUS GG 1 CAPSULE. PO SCH ×2 (08:49→21:32)
[2019-04-04] MEDS: ASPIRIN ENTERIC COATED 81 MG TABLET.DR. PO SCH (08:49)
[2019-04-04] MEDS ORDERED: METOPROLOL TART IMMED RELEASE 25 MG TABLET PO ONE (10:30)
[2019-04-04] MEDS ORDERED: ACETAMINOPHEN 325 MG TABLET PO PRN (11:45)
[2019-04-04] MEDS: CIPROFLOXACIN 200MG PREMIX 100 ML IV SCH ×2 (13:29→23:42)
[2019-04-04] MEDS: DIGOXIN 125 MCG TABLET PO SCH (15:30)
[2019-04-04] MEDS ORDERED: METOPROLOL TART IMMED RELEASE 50 MG TABLET PO SCH (21:00)
--- NOTE | 2019-04-04 21:00 | PDOC ---
Exam Note: Kin Note: Please also refer to the separate dictated note~for this date of service dictated separately.~Patient seen individually. Discussed the patient with Nursing staff reviewed the chart.~Reviewed interim history and current functioning. Reviewed vital signs,~Labs/ Radiology~and current medications noted below. Continue current treatment with the changes noted in the dictated addendum note Assessment: Vital Signs/I&O: Vital Signs Date Time Temp Pulse Resp B/P (MAP) Pulse Ox O2 Delivery O2 Flow Rate FiO2 04/04/19 20:00 97.6 99 26 100/53 (69) 91 Room Air 04/04/19 19:57 2.0 I & O 04/03/19 04/03/19 04/04/19 14:59 22:59 06:59 Intake Total 450 ml 350 ml 800 ml Output Total 350 ml 800 ml 1150 ml Balance 100 ml -450 ml -350 ml Labs: Laboratory Tests Test 04/04/19 05:35 Sodium Level 142 mmol/L (136-145) Potassium Level 3.9 mmol/L (3.5-5.1) Chloride Level 107 mmol/L (98-107) Carbon Dioxide Level 27 mmol/L (21-32) Anion Gap 8 (6-14) Blood Urea Nitrogen 24 mg/dL (8-26) Creatinine 1.0 mg/dL (0.7-1.3) Estimated GFR (Cockcroft-Gault) 71.2 Glucose Level 124 mg/dL (70-99) H Calcium Level 8.7 mg/dL (8.5-10.1) Magnesium Level 2.1 mg/dL (1.8-2.4) Current Medications: Meds: Current Medications Medications (Trade) Dose Ordered Sig/Andrew Route PRN Reason Start Time Stop Time Status Last Admin Dose Admin Metoprolol Tartrate (Lopressor) 25 mg BID PO 04/03/19 21:00 04/04/19 10:04 DC 04/04/19 08:49 Atorvastatin Calcium (Lipitor) 20 mg QHS PO 04/03/19 21:00 04/03/19 20:00 Ciprofloxacin Lactate 100 ml @ 100 mls/hr Q12H IV 04/04/19 12:00 04/04/19 13:29 Digoxin (Lanoxin) 125 mcg DAILY PO 04/04/19 15:30 04/04/19 15:30 I have reviewed the current psychotropics carefully including drug interactions. Risk benefit ratio favors no change other than as noted in my dictated progress note. Diagnosis: Problems: (1) Atrial flutter (2) Urinary catheter complication (3) Anxiety disorder (4) Mild cognitive impairment CATHERINE HURST MD Apr 04, 2019 21:00
[2019-04-04] MEDS: MIRTAZAPINE 15 MG TABLET PO SCH (21:32)
[2019-04-04] MEDS: ATORVASTATIN CALCIUM 20 MG TABLET PO SCH (21:32)
[2019-04-04] MEDS: MELATONIN 3 MG TABLET PO PRN (21:32)
--- NOTE | 2019-04-04 22:38 | PN ---
DATE: 04/03/2019 PSYCHIATRIC PROGRESS NOTE This late entry 04/03/2019 covers the elements not covered in my initial note. SUBJECTIVE: I met with the patient in the evening of 04/03/2019 in ICU bed 4. Discussed with nursing staff, reviewed the chart. Overall, the patient has been doing well from a psychiatric standpoint. He gets more confused in the evening, but did better during the day. He did take a shower. His brother visited from [place] had contact with him. During the individual visit, I talked to him at length about his short-term memory deficits. Driving should be assessed formally. We talked about possible higher level of care than living by himself, but he states he has neighbors, Conner who lives across the street and Dimple, who lives next door, but he forgot the last name of Dimple and did remark that was reflective of his short-term memory deficits. He has had, however, no episodes of leaving the stove on or being hazard in that respect, but with progressive short-term memory deficits, driving may be compromised and as noted, should be assessed. MENTAL STATUS EXAM: Oriented to himself and situation. Speech is coherent, rapid at times, trying to cover up for his deficits and anxious about this. Abstraction fair, computation somewhat impaired. Mood and affect a little anxious, but otherwise appropriate. No suicidal or homicidal ideation. No psychotic symptoms. LABORATORY DATA: Reviewed. IMPRESSION: Unchanged from initial note. PLAN: No change from initial note and Naomie Mcelroy RN will visit with the patient and coordinate [facility] the [facility] for the above issues. MAN Macario HURST MD DR: JOSE G/delores JOB#: [id number] / [id number]
[2019-04-05] VITALS (25 sets, daily range): BP systolic 78–133; BP diastolic 42–84
--- NOTE | 2019-04-05 02:59 | PN ---
DATE: SUBJECTIVE: The patient is sitting comfortably in his chair, in no apparent respiratory distress. He denied any complaint though he continued according to nursing staff to be somewhat confused. His blood pressure continued to be soft and the Cardiology nurse practitioner has increased her metoprolol to 50 mg, although he took only 25 this morning and his blood pressure is already down at 98/70. The patient himself is asymptomatic and was able to walk with a walker. PHYSICAL EXAMINATION: GENERAL: When I examined him this morning, he looked well and was clearly in no apparent respiratory distress. He has no pallor, jaundice, cyanosis or thyromegaly. No jugular venous distention. No lower limb edema. VITAL SIGNS: His heart rate was 98, blood pressure was 98/70, temperature was 98, respiratory rate was 22 and oxygen saturation was 95% on room air. HEAD, EYES, EARS, NOSE AND THROAT: Showed normocephalic, atraumatic. NECK: Supple. HEART: Normal first and second heart sounds. No gallop or murmur. CHEST: Clear to auscultation. No crepitation or rhonchi. ABDOMEN: Scaphoid, soft, nontender. NEUROLOGIC: He was awake, alert though he has episodes of confusion. All his cranial nerves are intact. He moves extremities without difficulty, ambulates with a walker. His intake over the last 24 hours was 2100, output was 2350. LABORATORY DATA: Showed a white cell count of 8200, hemoglobin 12, hematocrit 37, MCV 92 and platelet count 207,000. Serum sodium was 142, potassium 3.9, chloride 107, bicarbonate 27, anion gap of 8, BUN 24, creatinine 1, estimated GFR was 71 mL per minute, his glucose 124, calcium was 8.7, magnesium 2.1. His urine culture has grown more than 100,000 colony forming units of gram-negative rods identified as Citrobacter youngae, unfortunately resistant to penicillin and cephalosporins, sensitive to ciprofloxacin, gentamicin, meropenem, tetracycline, tobramycin and trimethoprim/sulfamethoxazole. ASSESSMENT: 1. Urinary retention secondary to clot. His Bey catheter was removed and new one was placed. His urine is generally clear except for few small clots. 2. Urinary tract infection. The growth of more than 100,000 colony forming units of gram-negative rods identified as Citrobacter youngae, resistant to cephalosporins. 3. Prostate cancer. 4. Paroxysmal atrial fibrillation flutter, remains in atrial flutter/fibrillation, the rates in the mid 90s. 5. Coronary artery disease, status post coronary artery bypass graft surgery in 2007, currently asymptomatic. 6. Mild acute on chronic systolic congestive heart failure due to ischemic cardiomyopathy. His echocardiogram showed that the patient's left ventricular systolic function is moderately to severely impaired, ejection fraction was only 25-30%, has moderate aortic regurgitation, mild mitral regurgitation, mild tricuspid regurgitation. Pulmonary artery pressure was estimated at 40 mmHg. 7. Hypertension. The patient is ____ borderline hypertensive. 8. Hyperlipidemia. 9. Status post abdominal aortic aneurysm. Plan is to continue with metoprolol, atorvastatin and aspirin together with Flomax. I discontinued his ceftriaxone and start him on IV ciprofloxacin. The patient lives alone and probably needs more assistance and I suggested to his brother that may be assisted living is the best place for him, but apparently the patient is still reluctant to do that. We will consult our social services specialist tomorrow for assist in his care. ALLISON STODDARD MD DR: SUKHDEV/delores JOB#: [id number] / [id number]
[2019-04-05 06:02] LABS: HEMATOCRIT 39.6 % (39.0-53.0); HEMOGLOBIN 13.2 g/dL (13.0-17.5); RED BLOOD COUNT 4.34 x10^6/uL (4.30-5.70); RED CELL DISTRIBUTION WIDTH 13.8 % (11.5-14.5); WHITE BLOOD COUNT 7.2 x10^3/uL (4.0-11.0)
[2019-04-05 06:20] LABS: ALBUMIN 2.8 g/dL (3.4-5.0); ALBUMIN/GLOBULIN RATIO 0.9 (1.0-1.7); CALCIUM 8.8 mg/dL (8.5-10.1); GFR 71.2; POTASSIUM 3.9 mmol/L (3.5-5.1); TOTAL BILIRUBIN 0.6 mg/dL (0.2-1.0)
[2019-04-05] MEDS: TAMSULOSIN 0.4 MG CAP.ER.24H. PO SCH (08:53)
[2019-04-05] MEDS: DOCUSATE SODIUM 100 MG CAPSULE PO SCH (08:53)
[2019-04-05] MEDS: ASPIRIN ENTERIC COATED 81 MG TABLET.DR. PO SCH (08:53)
[2019-04-05] MEDS: LACTOBACILLUS RHAMNOSUS GG 1 CAPSULE. PO SCH ×2 (08:53→20:19)
[2019-04-05] MEDS: SERTRALINE 100 MG TABLET. PO SCH (08:53)
[2019-04-05] MEDS: DIGOXIN 125 MCG TABLET PO SCH (08:54)
[2019-04-05] MEDS: METOPROLOL TART IMMED RELEASE 25 MG TABLET PO SCH ×2 (08:55→20:19)
--- NOTE | 2019-04-05 08:57 | PDOC ---
CARDIO Progress Notes Date & Time Date of Service DATE: 04/05/19 TIME: 08:56 Time of Evaluation 07:56 Subjective Notes No chest pain, palpitations, dizziness, diaphoresis, or nausea/vomiting. Vitals Vitals Vital Signs Date Time Temp Pulse Resp B/P (MAP) Pulse Ox O2 Delivery O2 Flow Rate FiO2 04/05/19 08:54 99 133/84 04/05/19 08:53 21 95 Room Air 04/05/19 05:00 97.5 04/05/19 04:04 2.0 Weight Weight [ ] Input and Output I.O. Intake and Output 04/05/19 07:00 Intake Total 1120 ml Output Total 1850 ml Balance -730 ml Intake Oral 920 ml IV Total 200 ml Output Urine Total 1850 ml # Bowel Movements 3 Laboratory Labs Laboratory Tests Test 04/04/19 05:35 04/05/19 05:32 Sodium Level 142 mmol/L (136-145) 143 mmol/L (136-145) Potassium Level 3.9 mmol/L (3.5-5.1) 3.9 mmol/L (3.5-5.1) Chloride Level 107 mmol/L (98-107) 106 mmol/L (98-107) Carbon Dioxide Level 27 mmol/L (21-32) 29 mmol/L (21-32) Anion Gap 8 (6-14) 8 (6-14) Blood Urea Nitrogen 24 mg/dL (8-26) 25 mg/dL (8-26) Creatinine 1.0 mg/dL (0.7-1.3) 1.0 mg/dL (0.7-1.3) Estimated GFR (Cockcroft-Gault) 71.2 71.2 Glucose Level 124 mg/dL (70-99) 92 mg/dL (70-99) Calcium Level 8.7 mg/dL (8.5-10.1) 8.8 mg/dL (8.5-10.1) Magnesium Level 2.1 mg/dL (1.8-2.4) White Blood Count 7.2 x10^3/uL (4.0-11.0) Red Blood Count 4.34 x10^6/uL (4.30-5.70) Hemoglobin 13.2 g/dL (13.0-17.5) Hematocrit 39.6 % (39.0-53.0) Mean Corpuscular Volume 91 fL (79-100) Mean Corpuscular Hemoglobin 30 pg (25-35) Mean Corpuscular Hemoglobin Concent 33 g/dL (31-37) Red Cell Distribution Width 13.8 % (11.5-14.5) Platelet Count 239 x10^3/uL (140-400) BUN/Creatinine Ratio 25 (6-20) Total Bilirubin 0.6 mg/dL (0.2-1.0) Aspartate Amino Transf (AST/SGOT) 24 U/L (15-37) Alanine Aminotransferase (ALT/SGPT) 43 U/L (16-63) Alkaline Phosphatase 71 U/L (46-116) Total Protein 6.0 g/dL (6.4-8.2) Albumin 2.8 g/dL (3.4-5.0) Albumin/Globulin Ratio 0.9 (1.0-1.7) Microbiology Micro Microbiology 03/31/19 Blood Culture - Final, Complete NO GROWTH AFTER 5 DAYS... 03/31/19 Urine Culture - Final, Complete 03/31/19 Urine Culture Result 1 (TELMA) - Final, Complete 03/31/19 Antimicrobic Susceptibility - Final, Complete Physical Exams HEENT: Neck Supple W Full Motion Chest: Symmetric Lungs: Clear to Auscultation, Other (diminished bases) Heart: S1S2, irregularly irregular (rate near 80) Abdomen: Soft N/T Extremities: No Edema Neurology: alert, oriented, follow commands, confused (intermittent ) Assessment Assessment 1. Urinary retention secondary to clot. Hematuria mostly resolved. Follows with urology at [place] 2. UTI with chronic hanson catheter. Changed upon admission 3. Prostate CA 4. Paroxysmal AFIB/flutter; Remains in AFIB/flutter; rate controlled. Had some bradycardia overnight while sleeping. Lowest 38. No pauses 5. CAD s/p previous CABG (2007); CP free. No acute ischemic changes. 6. Mild acute on chronic systolic CHF with probable ICM; improved s/p diuresis. Echo with LVEF 25-30%. Appears compensated 7. Hypertension; BP low end 8. Hyperlipidemia; statin 9. H/o abdominal aortic aneurysm s/p repair. 10. Encephalopathy; improved but remains with some confusion Recommendations Continue metoprolol and dig for rate control BP will not tolerate addition of ACEi ASA for stroke prevention. Poor candidate for OAC given hematuria and high fall risk PT/OT. Increase ambulation Agree with assisted living although patient strongly urges that he is safe at home alone. Continues to have some confusion. Patient has poor insight into his current condition/state Will arrange for outpatient event monitor if patient is able to comply. Follow up in our office as scheduled. MITCH GEIGER APRN Apr 05, 2019 08:57
[2019-04-05] MEDS: CIPROFLOXACIN 200MG PREMIX 100 ML IV SCH ×2 (12:18→23:45)
[2019-04-05] MEDS ORDERED: METO25TA4 PO (14:40)
[2019-04-05] MEDS ORDERED: CIPR250T30 PO (14:43)
[2019-04-05] MEDS ORDERED: DIGO125T17 PO (14:43)
[2019-04-05] MEDS ORDERED: ATOR20TA58 PO (14:43)
[2019-04-05] MEDS ORDERED: ASPI-630 PO (14:43)
--- NOTE | 2019-04-05 14:57 | DISCH ---
HOME HEALTH DISCHARGE/MEDS DISCHARGE INFORMATION: Discharge Date: Apr 05, 2019 Final Diagnosis: Problems Medical Problems: (1) Atrial flutter Status: Acute (2) Urinary catheter complication Status: Acute Condition on Discharge: Stable CODE STATUS: Code Status: Full HOME HEALTH: Face to Face: I certify this patient is under my care and that I, or a nurse practitioner or physician's school bus driver/teacher assistant working with me, had a face to face encounter that meets the physician face to face encounter requirements with this patient on Medical Condition(s): CHF, Other Senior Living For: Admin/Educate Injections Physical Therapy For: Evalulation/Treatment Occupational Therapy For: Evaluation/Treatment POST DISCHARGE ORDERS: Activity Instructions for Disc: Resume previous activity DIET AFTER DISCHARGE: Cardiac CERTIFICATION STATEMENT: Certification Statement: Based on the above finding, I certify that this patient is confined to the home and needs intermittent intermediate care, physical therapy and/or speech therapy, or continues to need occupational therapy.~ This patient is under my care, and I have initiated the establishment of the plan of care.~ This patient will be followed by myself or a community physician who will periodically review the plan of care. DISCHARGE MEDICATIONS: Home Meds Active Scripts Aspirin (ASPIRIN) 81 Mg Tab.chew, 81 MG PO DAILY for cad for 30 Days, #30 TAB Prov:ALLISON STODDARD MD 04/05/19 Atorvastatin Calcium (ATORVASTATIN CALCIUM) 20 Mg Tablet, 1 TAB PO DAILY for hld for 30 Days, #30 TAB 5 Refills Prov:ALLISON STODDARD MD 04/05/19 Ciprofloxacin Hcl (CIPRO) 250 Mg Tablet, 1 TAB PO BID for uti5 for 7 Days, #14 TAB 0 Refills Prov:ALLISON STODDARD MD 04/05/19 Digoxin (DIGOXIN) 125 Mcg Tablet, 125 MCG PO DAILY for AFIB/HEART FAILURE for 30 Days, #30 TAB Prov:ALLISON STODDARD MD 04/05/19 Metoprolol Tartrate (METOPROLOL TARTRATE) 25 Mg Tablet, 1 TAB PO BID for afib, #180 TAB 1 Refill Prov:ALLISON STODDARD MD 04/05/19 Reported Medications [cholecalciferol] No Conflict Check 03/31/19 Tamsulosin Hcl (FLOMAX) 0.4 Mg Cap.er.24h, 0.4 MG PO DAILY for prostate, CAP.SR 03/31/19 Sertraline Hcl (ZOLOFT) 100 Mg Tablet, 100 MG PO DAILY for ANTI-DEPRESSANT, TAB 0 Refills 03/31/19 [ensure plus] No Conflict Check 03/31/19 Mirtazapine (MIRTAZAPINE) 15 Mg Tablet, 15 MG PO QHS for for sleep, TAB 03/31/19 [lidocaine 5% patch] No Conflict Check 03/31/19 ALLISON STODDARD MD Apr 05, 2019 14:57
--- NOTE | 2019-04-05 15:43 | DS ---
DATE OF DISCHARGE: 04/05/2019 HOSPITAL COURSE: The patient is an 84-year-old male patient who initially presented to the Emergency Room with urine retention caused by blood clot in his Bey catheter. His Bey catheter was replaced at the Emergency Room; however there, he was found to be in atrial fibrillation with rapid ventricular response; therefore, he was started on Cardizem drip and admitted to the ICU. He was not considered a candidate for oral anticoagulation and he was started on metoprolol, but we could only give him 25 mg twice a day as his blood pressure is very low, therefore, digoxin was added for a better control of his heart rate. He was started also on atorvastatin. He has had an echocardiogram done, which showed that his left ventricular systolic function is moderately to severely impaired, ejection fraction is 25-30%, has moderate aortic regurgitation, mild mitral regurgitation, mild tricuspid regurgitation. Pulmonary artery pressure was estimated at 40 mmHg. There is no evidence of significant pericardial effusion. His heart rate was reasonably controlled. The patient has been asymptomatic, has been up and about. Denied any shortness of breath. Denied chest pain. He is now on room air, maintaining his oxygen saturation at 96%. He has been able to get out of the bed to bedside commode and has worked with physical therapy and walked all the way to the gym and back, a decision was made to discharge him home with home health. We have had a lengthy discussion with him about Assisted Living. Initially, he was adamant but now he is open to consider that but obviously that is a process that will take time. However meanwhile, his brother and his friend are [facility] to get some more assistance with him and from our side we will discharge him with home health. PHYSICAL EXAMINATION: GENERAL: When I saw him this afternoon, he looked well and was clearly in no apparent respiratory distress, slightly pale, somewhat cachectic, but no jaundice, cyanosis, or thyromegaly. No jugular venous distension. No limb edema. VITAL SIGNS: His heart rate was 92, blood pressure was 90/55, temperature was 98, respiratory rate was 10 and oxygen saturation was 96%. HEAD, EYES, EARS, NOSE AND THROAT: Showed normocephalic, atraumatic. NECK: Supple. HEART: Showed normal first and second heart sounds. No gallop or murmur. CHEST: Clear to auscultation. No crepitation or rhonchi. ABDOMEN: Distended, soft, nontender. No guarding or rigidity. No organomegaly. All hernial orifice intact. Bowel sounds normal. NEUROLOGIC: He is hard of hearing, but otherwise all his cranial nerves are intact. He moves extremities without difficulty, ambulates with a walker without difficulty or assistance. His intake over the last 24 hours was 1100, output was 1850. His white cell count 7200, hemoglobin 13, hematocrit 39, MCV 91, and platelet count 239,000. LABORATORY DATA: His serum sodium was 143, potassium 3.9, chloride 106, bicarbonate 29, anion gap of 8, BUN 25, creatinine 1, estimated GFR was 71 mL per minute. His glucose was 92, calcium was 8.8. Total bilirubin, AST, ALT, alkaline phosphatase were normal. Total protein was 6, albumin was 2.8. His serum triglycerides 163, total cholesterol was 140, LDL was 81, VLDL was 12, HDL was 47 and the ratio was 2. His vitamin B12 was normal at 509 picogram/mL and his TSH is also normal at 0.777. DISCHARGE MEDICATIONS: He will be discharged home with home health to continue on aspirin 81 mg once a day, atorvastatin 20 mg at bedtime, ciprofloxacin 250 mg twice a day for 7 days, digoxin 125 mcg once a day, metoprolol 25 mg twice a day. Should continue also on his mirtazapine 50 mg at bedtime, sertraline 100 mg daily, tamsulosin 0.4 mg daily for enlarged prostate. The patient will be discharged with indwelling Bey catheter. FINAL DISCHARGE DIAGNOSES: 1. Urinary retention secondary to clot in his Bey catheter that was changed. His urine generally clears except for a few small clots. 2. Urinary tract infection with growth of more than 100,000 colony forming units of gram-negative rods identified as Citrobacter youngae sensitive to ciprofloxacin. 3. Prostate cancer. 4. Paroxysmal atrial fibrillation/flutter. The patient continues to be in flutter/fibrillation, but the rate is much better controlled around 90s. 5. Coronary artery disease, status post coronary artery bypass graft surgery in 2007, currently asymptomatic. 6. Mild acute on chronic systolic congestive heart failure due to ischemic cardiomyopathy. His echocardiogram showed that the patient's left ventricular systolic function is moderately to severely impaired with an ejection fraction that was only 25-30%. 7. Hypertension, the patient is actually borderline hypotensive. 8. Hyperlipidemia. 9. Status post abdominal aortic aneurysm. The patient will be followed up at the Cardiology office at [facility]. They will also arrange for him to have an outpatient event monitor. ALLISON STODDARD MD DR: SUKHDEV/delores JOB#: [id number] / [id number]
--- NOTE | 2019-04-05 19:31 | PN ---
DATE: 04/04/2019 PSYCHIATRIC PROGRESS NOTE This late entry 04/04/2019 covers elements not covered in my initial note of 04/04/2019. SUBJECTIVE: I met with the patient in the evening. Discussed with nursing staff. Apparently, Naomie Mcelroy RN case manager was noted today and she did meet with the patient on 04/05/2019. The patient accepts that he is having some short-term memory problems between him and his brother. They still intent for him to get back home with home health services and assistance from neighbors. I addressed this with him at length. Discussed options of certain assisted living facilities in the area and he showed some interest and had questions about it. REVIEW OF SYSTEMS: No CV, , pulmonary, eye system symptoms on review. MENTAL STATUS EXAM: Oriented to himself and situation. Speech is coherent, has some latency. Abstraction fair, computation impaired, language function intact, attention span short. Mood and affect less anxious. LABORATORY DATA: Reviewed. IMPRESSION: Unchanged from initial note. PLAN: No change from initial note. CATHERINE HURST MD DR: JOSE G/delores JOB#: [id number] / [id number]
[2019-04-05] MEDS: MELATONIN 3 MG TABLET PO PRN (20:19)
[2019-04-05] MEDS: MIRTAZAPINE 15 MG TABLET PO SCH (20:19)
[2019-04-05] MEDS: ATORVASTATIN CALCIUM 20 MG TABLET PO SCH (20:19)
--- NOTE | 2019-04-05 20:56 | PDOC ---
Exam Note: Kin Note: Please also refer to the separate dictated note~for this date of service dictated separately.~Patient seen individually. Discussed the patient with Nursing staff reviewed the chart.~Reviewed interim history and current functioning. Reviewed vital signs,~Labs/ Radiology~and current medications noted below. Continue current treatment with the changes noted in the dictated addendum note Assessment: Vital Signs/I&O: Vital Signs Date Time Temp Pulse Resp B/P (MAP) Pulse Ox O2 Delivery O2 Flow Rate FiO2 04/05/19 20:19 97 128/84 04/05/19 20:10 20 95 Room Air 04/05/19 19:02 98.2 04/05/19 16:00 2.0 I & O 04/04/19 04/04/19 04/05/19 15:00 23:00 07:00 Intake Total 820 ml 200 ml 100 ml Output Total 450 ml 550 ml 850 ml Balance 370 ml -350 ml -750 ml Labs: Laboratory Tests Test 04/05/19 05:32 White Blood Count 7.2 x10^3/uL (4.0-11.0) Red Blood Count 4.34 x10^6/uL (4.30-5.70) Hemoglobin 13.2 g/dL (13.0-17.5) Hematocrit 39.6 % (39.0-53.0) Mean Corpuscular Volume 91 fL (79-100) Mean Corpuscular Hemoglobin 30 pg (25-35) Mean Corpuscular Hemoglobin Concent 33 g/dL (31-37) Red Cell Distribution Width 13.8 % (11.5-14.5) Platelet Count 239 x10^3/uL (140-400) Sodium Level 143 mmol/L (136-145) Potassium Level 3.9 mmol/L (3.5-5.1) Chloride Level 106 mmol/L (98-107) Carbon Dioxide Level 29 mmol/L (21-32) Anion Gap 8 (6-14) Blood Urea Nitrogen 25 mg/dL (8-26) Creatinine 1.0 mg/dL (0.7-1.3) Estimated GFR (Cockcroft-Gault) 71.2 BUN/Creatinine Ratio 25 (6-20) H Glucose Level 92 mg/dL (70-99) Calcium Level 8.8 mg/dL (8.5-10.1) Total Bilirubin 0.6 mg/dL (0.2-1.0) Aspartate Amino Transferase (AST) 24 U/L (15-37) Alanine Aminotransferase (ALT) 43 U/L (16-63) Alkaline Phosphatase 71 U/L (46-116) Total Protein 6.0 g/dL (6.4-8.2) L Albumin 2.8 g/dL (3.4-5.0) L Albumin/Globulin Ratio 0.9 (1.0-1.7) L Current Medications: Meds: Current Medications Medications (Trade) Dose Ordered Sig/Andrew Route PRN Reason Start Time Stop Time Status Last Admin Dose Admin Metoprolol Tartrate (Lopressor) 25 mg BID PO 04/04/19 21:00 04/05/19 20:19 I have reviewed the current psychotropics carefully including drug interactions. Risk benefit ratio favors no change other than as noted in my dictated progress note. Diagnosis: Problems: (1) Atrial fibrillation (2) Atrial flutter (3) Urinary catheter complication (4) Anxiety disorder (5) Mild cognitive impairment CATHERINE HURST MD Apr 05, 2019 20:56
[2019-04-06 04:03] VITALS: BP 121/80
[2019-04-06 06:16] VITALS: BP 93/61
[2019-04-06] MEDS: LACTOBACILLUS RHAMNOSUS GG 1 CAPSULE. PO SCH (09:57)
[2019-04-06] MEDS: TAMSULOSIN 0.4 MG CAP.ER.24H. PO SCH (09:57)
[2019-04-06] MEDS: SERTRALINE 100 MG TABLET. PO SCH (09:57)
[2019-04-06] MEDS: ASPIRIN ENTERIC COATED 81 MG TABLET.DR. PO SCH (09:57)
[2019-04-06] MEDS: DIGOXIN 125 MCG TABLET PO SCH (09:57)
[2019-04-06 09:58] VITALS: BP 112/73
[2019-04-06] MEDS: METOPROLOL TART IMMED RELEASE 25 MG TABLET PO SCH (09:58)
[2019-04-06] MEDS: DOCUSATE SODIUM 100 MG CAPSULE PO SCH (09:59)
--- NOTE | 2019-04-09 10:18 | DS ---
DATE OF DISCHARGE: 04/06/2019 ADDENDUM ATTENDING PHYSICIAN: Dr. Huntley. The patient was admitted with urinary retention. He is doing fairly well. There was some transportation issue. Dr. Huntley has already discharged him yesterday. I went and saw him this morning. Vital signs are stable. Heart rate fluctuating between 70 and 110. He is comfortable with the Bey catheter. He has a leg bag at home. Therefore, he is discharged home with a leg bag to follow up with his PCP and urologist. Home meds remain unchanged. They include aspirin, Lipitor, Cipro, digoxin and metoprolol, dose is unchanged. He was discharged there from our hospital in stable condition with explicit instructions and followup care. ABIDA BULLOCK MD DR: MEL/delores JOB#: [id number] / [id number] ALLISON Moffett MD
== END 2019-04-06 14:10 | disposition home or self-care (01) | DRG 698 ==
LOC: ER 03:56 → ICU 07:52 → ENPENDDIS 04-05 23:59
PROVIDERS: ADMIT Internal Medicine; ATTEND Internal Medicine
DX: T83.098A Other mechanical complication of other urinary catheter, initial encounter (principal); I50.23 Acute on chronic systolic (congestive) heart failure; G93.40 Encephalopathy, unspecified; I47.2 Ventricular tachycardia; I48.92 Unspecified atrial flutter; N39.0 Urinary tract infection, site not specified; E78.5 Hyperlipidemia, unspecified; F32.9 Major depressive disorder, single episode, unspecified; F41.9 Anxiety disorder, unspecified; G31.84 Mild cognitive impairment of uncertain or unknown etiology; I11.0 Hypertensive heart disease with heart failure; I25.10 Atherosclerotic heart disease of native coronary artery without angina pectoris; I25.5 Ischemic cardiomyopathy; I48.0 Paroxysmal atrial fibrillation; J43.9 Emphysema, unspecified; C61 Malignant neoplasm of prostate; K57.90 Diverticulosis of intestine, part unspecified, without perforation or abscess without bleeding; I95.9 Hypotension, unspecified; I35.1 Nonrheumatic aortic (valve) insufficiency; N40.1 Benign prostatic hyperplasia with lower urinary tract symptoms; R31.0 Gross hematuria; R33.8 Other retention of urine; Z82.49 Family history of ischemic heart disease and other diseases of the circulatory system; Z85.46 Personal history of malignant neoplasm of prostate; Z86.79 Personal history of other diseases of the circulatory system; Z87.19 Personal history of other diseases of the digestive system; Z87.891 Personal history of nicotine dependence; Z95.1 Presence of aortocoronary bypass graft; Z60.2 Problems related to living alone; Y84.6 Urinary catheterization as the cause of abnormal reaction of the patient, or of later complication, without mention of misadventure at the time of the procedure; Y92.89 Other specified places as the place of occurrence of the external cause
CPT/HCPCS: 36415; 36600; 51702; 70450; 71045; 71275; 74177; 80048; 80053; 80061; 81001; 82607; 82803; 83605; 83735; 83880; 84443; 84484; 85025; 85027; 85610; 87040; 87086; 87186; 93005; 93306; 96361; 96365; 96366; 96375; J0153; J0696; J0744; J1160; J1940; J3490; J7613; Q9967; 97116; 97535; 99291-25; J7030

== ENCOUNTER 2019-05-01 16:10 | Emergency (ER) | payer MEDICARE ==
[~2019-05-01] VITALS: Ht 177.8 cm; Wt 54.5 kg
[~2019-05-01 16:10] MED LIST: ASPI-630 PO; ATOR20TA58 PO; CIPR250T30 PO; DIGO125T17 PO; ENSURE PLUS; METO25TA4 PO; MIRT15TA3 PO; SERT100T PO; TAMS0.4C97 PO; cholecalciferol; lidocaine 5% patch
[2019-05-01 16:43] VITALS: BP 144/70
--- NOTE | 2019-05-01 17:43 | PHYS DOC ---
Past History Past Medical History: CAD, Cancer, Dementia, High Cholesterol, Hypertension, Other Additional Past Medical Histor: colonic polyps;colitis;vertigo; jeana cataracts;AAA;enlarged prostate-cancer Past Surgical History: Coronary Bypass Surgery, Tonsillectomy, Other Additional Past Surgical Histo: circumcision; AAA repair Alcohol Use: Rarely Drug Use: None Adult General Chief Complaint Chief Complaint: BLOOD IN URINE [facility] Patient is a 84-year-old male who has history of indwelling Hanson catheter, was taken here by EMS from home due to inability to insert the hanson catheter today. His home health nurse tried to replace his hanson catheter today and when she tried to insert a new one in , she was not able to do it so patient was sent here for hanson catheter placement. Patient is complain of pressure in his bladder, no fever, no nausea or vomiting. Review of Systems Review of Systems All other ROS is negative unless otherwise noted in [facility] Allergies Allergies Allergies Coded Allergies Type Severity Reaction Last Updated Verified No Known Drug Allergies 03/31/19 No Physical Exam Physical Exam See above Constitutional: Well developed, well nourished, no acute distress, non-toxic appearance. [] HENT: Normocephalic, atraumatic, . [] Eyes: PERRLA, EOMI, conjunctiva normal, no discharge. [] Cardiovascular:Heart rate regular rhythm, no murmur [] Lungs & Thorax: Bilateral breath sounds clear to auscultation [] Abdomen: Bowel sounds normal, soft, no tenderness, no masses, no pulsatile masses. [] Skin: Warm, dry, no erythema, no rash. [] Back: No tenderness, no CVA tenderness. [] Extremities: No tenderness, no cyanosis, no clubbing, ROM intact, no edema. [] Neurologic: Alert and oriented X 3, normal motor function, normal sensory function, no focal deficits noted. [] Psychologic: Affect normal, judgement normal, mood normal. [] Current Patient Data Vital Signs Vital Signs Date Time Temp Pulse Resp B/P (MAP) Pulse Ox O2 Delivery O2 Flow Rate FiO2 05/01/19 16:43 98.1 56 18 144/70 (94) 97 Room Air EKG EKG [] Radiology/Procedures Radiology/Procedures [] Course & Med Decision Making Course & Med Decision Making Pertinent Labs and Imaging studies reviewed. (See chart for details) AN 18 [place] CATHETER WAS PLACED BY RN WITHOUT ANY PROBLEM, CLEAR URINE OUTPUT. Patient felt much better. will discharge him home with leg bag catheter. Dragon Disclaimer Dragon Disclaimer This electronic medical record was generated, in whole or in part, using a voice recognition dictation system. Departure Departure: Impression: Primary Impression: Urinary catheter (Hanson) change required Disposition: HOME/RESIDENCE PRIOR TO ADM Condition: STABLE Referrals: PCP,NO (PCP) FOLLOW UP WITH YOUR DOCTOR NEEDED Patient Instructions: Hanson Catheter Care, Adult Additional Instructions: Thank you for visiting our Emergency Department. We appreciate you trusting us with your care. If any additional problems come up don't hesitate to return to visit us. Please follow up with your primary care provider so they can plan additional care if needed and know about the problem that you had. If symptoms worsen come back to the Emergency Department. Any concerning symptoms that start such as chest pain, shortness of air, weakness or numbness on one side of the body, running high fevers or any other concerning symptoms return to the ER. CHAD TALAVERA DO May 01, 2019 17:43
== END 2019-05-01 18:22 | disposition home or self-care (01) ==
LOC: ER 16:10
DX: T83.091A Other mechanical complication of indwelling urethral catheter, initial encounter (principal); I25.10 Atherosclerotic heart disease of native coronary artery without angina pectoris; E78.5 Hyperlipidemia, unspecified; I10 Essential (primary) hypertension; Z95.1 Presence of aortocoronary bypass graft; Z90.89 Acquired absence of other organs
CPT/HCPCS: 51702; 99284

== ENCOUNTER 2019-05-28 21:34 | Emergency (ER) | payer MEDICARE ==
[~2019-05-28] VITALS: Ht 177.8 cm; Wt 59.8 kg
--- NOTE | 2019-05-28 22:08 | PHYS DOC ---
Past History Past Medical History: CAD, Cancer, Dementia, High Cholesterol, Hypertension, Other Additional Past Medical Histor: colonic polyps;colitis;vertigo; jeana cataracts;AAA;enlarged prostate-cancer Past Surgical History: Coronary Bypass Surgery, Tonsillectomy, Other Additional Past Surgical Histo: circumcision; AAA repair Alcohol Use: Rarely Drug Use: None Adult General Chief Complaint Chief Complaint: URINE CATHETER PROBLEM HPI HPI 84-year-old male presents via EMS after catheter fell out. He has a Bey catheter. He was concerned that a piece of it broke off and might still be in his bladder. He thinks it came out at least one day ago. He does have some carmen ntia at baseline. He had [facility] the [facility] but could not get in there to have her placed today. He denies fever or chills. He has no other complaints. He just wants a new catheter. He is had a catheter chronically for "some time". Review of Systems Review of Systems Constitutional: Denies fever or chills [] Eyes: Denies change in visual acuity, redness, or eye pain [] HENT: Denies nasal congestion or sore throat [] Respiratory: Denies cough or shortness of breath [] Cardiovascular: No additional information not addressed in HPI [] GI: Denies abdominal pain, nausea, vomiting, bloody stools or diarrhea [] : Denies dysuria or hematuria [] Musculoskeletal: Denies back pain or joint pain [] Integument: Denies rash or skin lesions [] Neurologic: Denies headache, focal weakness or sensory changes [] Endocrine: Denies polyuria or polydipsia [] All other systems were reviewed and found to be within normal limits, except as documented in this note. Allergies Allergies Allergies Coded Allergies Type Severity Reaction Last Updated Verified No Known Drug Allergies 03/31/19 No Physical Exam Physical Exam Constitutional: Well developed, well nourished, no acute distress, non-toxic appearance. [] HENT: Normocephalic, atraumatic, bilateral external ears normal, oropharynx moist, no oral exudates, nose normal. [] Eyes: PERRLA, EOMI, conjunctiva normal, no discharge. [] Neck: Normal range of motion, no tenderness, supple, no stridor. [] Cardiovascular:Heart rate regular rhythm, no murmur [] Lungs & Thorax: Bilateral breath sounds clear to auscultation [] Abdomen: Bowel sounds normal, soft, no tenderness, no masses, no pulsatile masses. [] Skin: Warm, dry, no erythema, no rash. [] Back: No tenderness, no CVA tenderness. [] Extremities: No tenderness, no cyanosis, no clubbing, ROM intact, no edema. [] Neurologic: Alert and oriented X 3, normal motor function, normal sensory function, no focal deficits noted. [] Psychologic: Affect normal, judgement normal, mood normal. [] EKG EKG [] Radiology/Procedures Radiology/Procedures [] Course & Med Decision Making Course & Med Decision Making Pertinent Labs and Imaging studies reviewed. (See chart for details) We successfully reinserted a Bey catheter with leg bag. His urinalysis shows some signs of infection, but with a chronic Bey we will wait for the culture. I will not treat him at this time. He is stable for discharge. Dragon Disclaimer Dragon Disclaimer This electronic medical record was generated, in whole or in part, using a voice recognition dictation system. Departure Departure: Impression: Primary Impression: Dislodged Bey catheter Disposition: HOME, SELF-CARE Condition: IMPROVED Referrals: PCP,NO (PCP) YG HERNANDEZ DO May 28, 2019 22:08
[2019-05-28 23:35] LABS: BILIRUBIN,URINE NEG (NEG); CLARITY,URINE HAZY; COLOR,URINE YELLOW; GLUCOSE,URINE NEG (NEG)
[2019-05-28 23:36] LABS: BACTERIA,URINE FEW /HPF (0-FEW); NITRITE,URINE NEG (NEG); RBC,URINE >40 /HPF (0-2); UROBILINOGEN,URINE 0.2 mg/dL (0.2 mg/dL); WBC,URINE >40 /HPF (0-4)
[2019-05-28 23:37] LABS: SQUAMOUS EPITHELIAL CELL,UR OCC /LPF
== END 2019-05-28 23:40 | disposition home or self-care (01) ==
LOC: ER 21:34
DX: T83.021A Displacement of indwelling urethral catheter, initial encounter (principal); F03.90 Unspecified dementia, unspecified severity, without behavioral disturbance, psychotic disturbance, mood disturbance, and anxiety; I25.810 Atherosclerosis of coronary artery bypass graft(s) without angina pectoris; E78.00 Pure hypercholesterolemia, unspecified; I10 Essential (primary) hypertension
CPT/HCPCS: 51702; 81001; 87086; 99284

== ENCOUNTER 2019-05-30 19:09 | Emergency (ER) | payer MEDICARE ==
[~2019-05-30] VITALS: Ht 177.8 cm; Wt 59.8 kg
--- NOTE | 2019-05-30 19:13 | PHYS DOC ---
Past History Past Medical History: CAD, Cancer, Dementia, High Cholesterol, Hypertension, Other Additional Past Medical Histor: colonic polyps;colitis;vertigo; jeana cataracts;AAA;enlarged prostate-cancer Past Surgical History: Coronary Bypass Surgery, Tonsillectomy, Other Additional Past Surgical Histo: circumcision; AAA repair Alcohol Use: Rarely Drug Use: None Adult General Chief Complaint Chief Complaint: URINE CATHETER PROBLEM..." I got this thing put in yesterday... since I could not piss.. but I think I pulled it out... and I shoved it back in... I was trying to manage.. but got piss off at the nurses at my senior care... but now it bleeding.. and no urine is coming out..." [facility] HPI Patient is a 84 year old male who presents with Hanson cath. problems. Patient's Hanson was placed yesterday in the emergency department due to acute urinary retention. Patient apparently pulled out his Hanson catheter and then he then attempted reinsert it. Patient catheter tip was full of blood. Patient was not placed on antibiotics on previous placement of catheter. Hanson was replaced by nursing. Patient was irrigated until blood cleared. Patient appeared to have good drainage from Hanson site. Will start patient on Levaquin because of the history of non-casing cleaner sterile insertion by pt. Review of Systems Review of Systems Constitutional: Denies fever or chills [] Eyes: Denies change in visual acuity, redness, or eye pain [] HENT: Denies nasal congestion or sore throat [] Respiratory: Denies cough or shortness of breath [] Cardiovascular: No additional information not addressed in HPI [] GI: Denies abdominal pain, nausea, vomiting, bloody stools or diarrhea [] : Complaints of urinary retention, dysuria and hematuria [] Musculoskeletal: Denies back pain or joint pain [] Integument: Denies rash or skin lesions [] Neurologic: Denies headache, focal weakness or sensory changes [] Endocrine: Denies polyuria or polydipsia [] All other systems were reviewed and found to be within normal limits, except as documented in this note. Family History Family History Noncontributory to presentation Current Medications Current Medications He nursing for home medications Allergies Allergies Allergies Coded Allergies Type Severity Reaction Last Updated Verified No Known Drug Allergies 03/31/19 No Physical Exam Physical Exam Constitutional: in acute distress, non-toxic appearance. [] HENT: Normocephalic, atraumatic, bilateral external ears normal, oropharynx moist, no oral exudates, nose normal. [] Eyes: PERRLA, EOMI, conjunctiva normal, no discharge. [] Neck: Normal range of motion, no tenderness, supple, no stridor. [] Cardiovascular:Heart rate regular rhythm, no murmur [] Lungs & Thorax: Bilateral breath sounds equal at apex auscultation []old surgical scar. Abdomen: Bowel sounds normal, soft, distended bladder area and tenderness, no masses, no pulsatile masses. []Circumcised male . Bleeding at meatus at Hanson that is in malposition.. Skin: Warm, dry, no erythema, no rash. [] Back: No tenderness, no CVA tenderness. [] Extremities: No tenderness, no cyanosis, no clubbing, ROM intact, no edema. Arthritic changes. Neurologic: Alert and oriented X 3, normal motor function, normal sensory function, no focal deficits noted. [] Psychologic: Affect anxious judgement obvious memory and dementia issues, mood depressed EKG EKG [] Radiology/Procedures Radiology/Procedures [] Course & Med Decision Making Course & Med Decision Making Pertinent Labs and Imaging studies reviewed. (See chart for details) Patient follow-up primary care. Patient follow-up with urology.. Patient take Levaquin 500 mg daily for 5 days. Hanson will need to be re-irrigated if it becomes clotted. Impression: 1. Urinary Retention 2. Hanson Trauma 3. Hx. of UTI [] Dragon Disclaimer Dragon Disclaimer This electronic medical record was generated, in whole or in part, using a voice recognition dictation system. Departure Departure: Disposition: HOME/RESIDENCE PRIOR TO ADM Condition: STABLE Referrals: PCP,NO (PCP) Scripts Levofloxacin (LEVAQUIN) 500 Mg Tablet 500 MG PO DAILY for hanson trauma, contam. for 7 Days, #7 TAB Prov: SHEMAR LOW MD 05/30/19 Phenazopyridine Hcl (PYRIDIUM) 100 Mg Tablet 1 TAB PO TID for urinary discomfort for 3 Days, #9 TAB 0 Refills Prov: SHEMAR LOW MD 05/30/19 Edward Disclaimer This chart was dictated in whole or in part using Voice Recognition software in a busy, high-work load, and often noisy Emergency Department environment. It may contain unintended and wholly unrecognized errors or omissions. Dragon Disclaimer This chart was dictated in whole or in part using Voice Recognition software in a busy, high-work load, and often noisy Emergency Department environment. It may contain unintended and wholly unrecognized errors or omissions. Dragon Disclaimer This chart was dictated in whole or in part using Voice Recognition software in a busy, high-work load, and often noisy Emergency Department environment. It may contain unintended and wholly unrecognized errors or omissions. SHEMAR LOW MD May 30, 2019 19:13
[2019-05-30] MEDS ORDERED: PHENAZOPYRIDINE 200 MG TABLET. PO ONE (19:45)
[2019-05-30] MEDS ORDERED: PHEN100T82 PO (19:45)
[2019-05-30] MEDS ORDERED: LEVO500T59 PO (21:06)
[2019-05-30] MEDS ORDERED: levoFLOXacin 500 MG TABLET PO ONE (21:15)
[2019-05-30 21:36] LABS: COLOR,URINE RED
[2019-05-30 21:37] LABS: BACTERIA,URINE 0 /HPF (0-FEW); RBC,URINE >40 /HPF (0-2); WBC,URINE 0 /HPF (0-4)
[2019-05-30 21:38] LABS: CLARITY,URINE BLOODY
[2019-05-30 21:45] VITALS: BP 130/92
== END 2019-05-30 21:53 | disposition home or self-care (01) ==
LOC: ER 19:09
DX: T83.028A Displacement of other urinary catheter, initial encounter (principal); R33.9 Retention of urine, unspecified; R30.0 Dysuria; I25.810 Atherosclerosis of coronary artery bypass graft(s) without angina pectoris; F03.90 Unspecified dementia, unspecified severity, without behavioral disturbance, psychotic disturbance, mood disturbance, and anxiety; E78.00 Pure hypercholesterolemia, unspecified; I10 Essential (primary) hypertension; Z87.440 Personal history of urinary (tract) infections
CPT/HCPCS: 51702; 81001; 99284

== ENCOUNTER 2019-06-02 03:02 | Emergency (ER) | payer MEDICARE ==
[~2019-06-02] VITALS: Ht 177.8 cm; Wt 59.8 kg
[2019-06-02 03:02] VITALS: BP 155/65
[~2019-06-02 03:02] MED LIST changes: +LEVO500T59 PO; +PHEN100T82 PO
--- NOTE | 2019-06-02 03:44 | PHYS DOC ---
Past History Past Medical History: CAD, Cancer, Dementia, High Cholesterol, Hypertension, Other Additional Past Medical Histor: colonic polyps;colitis;vertigo; jeana cataracts;AAA;enlarged prostate-cancer Past Surgical History: Coronary Bypass Surgery, Tonsillectomy, Other Additional Past Surgical Histo: circumcision; AAA repair Alcohol Use: Rarely Drug Use: None Adult General Chief Complaint Chief Complaint: URINE CATHETER PROBLEM [facility] HPI 84 year old male presents with the chief complaint of unable to urinate and hanson cath problems. Patient with history of Prostate Ca with 1 year history of hanson cath. Patient arrived without a hanson in place. Patient was just seen on the and hanson was replaced. Patient was Dx with UTI at that time and treated with antibotics and given and Rx antibiotics. Review of Systems Review of Systems Constitutional: Denies fever or chills [] Eyes: Denies change in visual acuity, redness, or eye pain [] HENT: Denies nasal congestion or sore throat [] Respiratory: Denies cough or shortness of breath [] Cardiovascular: No additional information not addressed in HPI [] GI: Denies abdominal pain, nausea, vomiting, bloody stools or diarrhea [] : Denies dysuria or hematuria [] Musculoskeletal: Denies back pain or joint pain [] Integument: Denies rash or skin lesions [] Neurologic: Denies headache, focal weakness or sensory changes [] Endocrine: Denies polyuria or polydipsia [] All other systems were reviewed and found to be within normal limits, except as documented in this note. Allergies Allergies Allergies Coded Allergies Type Severity Reaction Last Updated Verified No Known Drug Allergies 03/31/19 No Physical Exam Physical Exam Constitutional: Well developed, well nourished, no acute distress, non-toxic appearance. [] HENT: Normocephalic, atraumatic, bilateral external ears normal, oropharynx moist, no oral exudates, nose normal. [] Eyes: PERRLA, EOMI, conjunctiva normal, no discharge. [] Neck: Normal range of motion, no tenderness, supple, no stridor. [] Cardiovascular:Heart rate regular rhythm, no murmur [] Lungs & Thorax: Bilateral breath sounds clear to auscultation [] Abdomen: Bowel sounds normal, soft, no tenderness, no masses, no pulsatile masses. [] Skin: Warm, dry, no erythema, no rash. [] Back: No tenderness, no CVA tenderness. [] Extremities: No tenderness, no cyanosis, no clubbing, ROM intact, no edema. [] Neurologic: Alert and oriented X 3, normal motor function, normal sensory function, no focal deficits noted. [] Psychologic: Affect normal, judgement normal, mood normal. [] EKG EKG [] Radiology/Procedures Radiology/Procedures [] Course & Med Decision Making Course & Med Decision Making Pertinent Labs and Imaging studies reviewed. (See chart for details) []Hanson replaced. Patient to continue antibiotics. Dragon Disclaimer Dragon Disclaimer This electronic medical record was generated, in whole or in part, using a voice recognition dictation system. Departure Departure: Impression: Primary Impression: Hanson catheter problem Additional Impression: Dislodged Hanson catheter Disposition: HOME, SELF-CARE Condition: STABLE Referrals: PCP,NO (PCP) Patient Instructions: Hanson Catheter Care, Adult Problem Qualifiers EZEQUIEL CHASE DO Jun 02, 2019 03:44
== END 2019-06-02 03:47 | disposition home or self-care (01) ==
LOC: ER 03:02
DX: T83.028A Displacement of other urinary catheter, initial encounter (principal); I25.810 Atherosclerosis of coronary artery bypass graft(s) without angina pectoris; F03.90 Unspecified dementia, unspecified severity, without behavioral disturbance, psychotic disturbance, mood disturbance, and anxiety; E78.00 Pure hypercholesterolemia, unspecified; I10 Essential (primary) hypertension; Z87.440 Personal history of urinary (tract) infections
CPT/HCPCS: 51702; 99284-25

== ENCOUNTER → 2019-07-01 | Outpatient (CLI) | payer MEDICARE, OTHER ==
[2019-06-02 03:02] VITALS: BP 155/65
--- NOTE | 2019-07-01 21:47 | RAD ---
Exam: Right lower extremity venous duplex study INDICATION: Leg swelling TECHNIQUE: Using a combination of real-time ultrasound imaging and color-flow and pulse Doppler imaging techniques along with graded compression and augmentation, duplex evaluation of the deep venous systems of rightlower extremity was performed. Multiple images were obtained. Findings: There is no sonographic evidence for deep venous thrombosis involving the visualized deep venous structures of the right lower extremity. Edema is seen in the subcutaneous tissues of the lower leg. IMPRESSION: No acute DVT in the right lower extremities. Electronically signed by: Elina Nunes MD (07/01/2019 9:43 PM) [id number]
== END ==
LOC: RAD 20:14
PROVIDERS: ATTEND Neuromusculoskeletal Medicine & OMM
DX: M79.89 Other specified soft tissue disorders (principal)
CPT/HCPCS: 93971